=== PATIENT | male | born 1950 | race Caucasian/White ===

== ENCOUNTER 2018-09-16 09:43 | Day surgery (SDC) | payer OTHER ==
[~2018-09-16 09:43] MED LIST: Acetaminophen TAB* 325 MG PO PRN; Buffered Lidocaine 1% SYRIN* 1 ML/SYRINGE INTRADERM ONE
[2018-09-16] MEDS ORDERED: Midazolam* 1 MG/ML 2 ML VIAL (2 MG) ONE (11:35)
[2018-09-16 13:17] VITALS: BP 131/66
[2018-09-16] MEDS ORDERED: Neomycin/Polymy/Dex OPTH.SUSP* MAXITROL 0.1% 5 ML ONE (14:14)
[2018-09-16] MEDS ORDERED: Proparacaine 0.5% OPHTH.SOL* 15 ML BTL ONE (14:14)
[2018-09-16] MEDS ORDERED: Cyclopentolate 1% OPTH.SOL* 2 ML BTL ONE (14:14)
[2018-09-16] MEDS ORDERED: acetaZOLAMIDE TAB* 250 MG ONE (14:14)
[2018-09-16] MEDS ORDERED: Povidone Iodine 5% OPTH* 30 ML BTL ONE (14:14)
[2018-09-16] MEDS ORDERED: Ketorolac 0.5% OPHTH (NF) 0.5 % 5 ML BTL ONE (14:14)
[2018-09-16] MEDS ORDERED: Lidocaine 1%* 5 ML VIAL ONE (14:14)
[2018-09-16] MEDS ORDERED: Phenylephrine OPHTH SOL 2.5%* 2 ML ONE (14:14)
[2018-09-16] MEDS ORDERED: Lidocaine 2% EPI 1:200000 MPF*10-20 ML VIAL ONE (14:14)
--- NOTE | 2018-09-16 15:16 | OP ---
OPERATIVE NOTE: DATE OF OPERATION: 09/16/18 - [facility] DATE OF : 48 SURGEON: Karl Mortensen M.D. PREOPERATIVE DIAGNOSES: 1. Cataract, right eye. 2. Glaucoma, right eye. POSTOPERATIVE DIAGNOSES: 1. Cataract, right eye. 2. Glaucoma, right eye. OPERATIVE PROCEDURE: Extracapsular cataract extraction with IOL and iStent, right eye. PROCEDURE: The patient was brought to the operating room after being given 1/2 % Alcaine with epinephrine drops in the preoperative area. The eye was prepped and draped in the usual sterile fashion. Sterile drape and eyelid speculum were placed. Again, topical 1/2% Alcaine with epinephrine was given. A paracentesis incision was made at the 9 o'clock position with the No. 75 blade. Clear cornea incision 2.2 x 2.2-mm was created at the 12 o'clock position starting at the anterior limbus using the 2.2-mm keratome. The anterior chamber was irrigated with 0.4 mL of 1% non-preservative intracameral lidocaine and filled with DisCoVisc. A capsulorrhexis was completed using the cystotome and the Utrata forceps. Hydrodissection was performed with balanced salt solution. The lens nucleus was removed with the Phacoemulsification handpiece without incident. Cortex was removed with the irrigation-aspiration handpiece. The capsular bag was re-inflated using DisCoVisc and an SN60WF 12.5 implant was inserted with the shooter followed by an iStent inject inserted with its shooter in the nasal trabecular meshwork. The irrigation-aspiration handpiece was used to remove all residual DisCoVisc. The eye was refilled with balanced salt solution and the wound checked and found to be watertight. Topical Maxitrol drops were given. [id number]/[facility] #: [id number] [facility] HOSPITALJenny
== END 2018-09-16 13:05 | disposition home or self-care (01) ==
LOC: OREAST 09:43
PROVIDERS: ATTEND Specialist
DX: H25.811 Combined forms of age-related cataract, right eye (principal); H40.1131 Primary open-angle glaucoma, bilateral, mild stage; G20 Parkinson's disease; H33.8 Other retinal detachments; H53.2 Diplopia; I49.1 Atrial premature depolarization
CPT/HCPCS: A9270-GY; C1783; J2250; V2632

== ENCOUNTER 2018-10-23 21:22 | Observation (INO) | payer MEDICARE ==
--- NOTE | 2018-10-23 22:37 | ED ---
Neurological HPI - HPI Summary HPI Summary: This patient is a 68 year old male brought in by ambulance to [facility] with a chief complaint of vertigo and convulsions since 2 hours ago. Patient states that he was walking into the kitchen and making something to eat when he was hit with a sudden wave of movement, as if the room was spinning. The patient then experienced convulsions and fell to the floor. Patient has experienced similar falls around this month. Patient notes that did not lose consciousness and tried to brace himself on the counter, but ended up falling on the floor anyway. The pain is rated 0/10 in severity. Symptoms aggravated by nothing. Symptoms alleviated by nothing. Patient additionally notes mild discomfort in his left hip after falling. - History of Current Complaint Chief Complaint: EDDizziness Stated Complaint: SYNCOPE/FALL PER EMS Time Seen by Provider: 10/23/18 22:23 Hx Obtained From: Patient Onset/Duration: Started hours ago, Still Present Timing: Constant Current Severity: None Pain Intensity: 0 Pain Scale Used: 0-10 Numeric Character: Room Spinning, Dizzy, Other: - convulsions, vertigo - Additional Pertinent History Primary Care Physician: [id number] - Allergy/Home Medications Allergies/Adverse Reactions: Allergies Allergy/AdvReac Type Severity Reaction Status Date / Time primidone Allergy Rash Verified 10/23/18 21:30 PMH/Surg Hx/FS Hx/Imm Hx Previously Healthy: No Endocrine/Hematology History: Denies: Hx Diabetes, Hx Thyroid Disease Cardiovascular History: Denies: Hx Hypertension, Hx Pacemaker/ICD, Other Cardiovascular Problems/ Disorders Respiratory History: Reports: Hx Pneumonia, Other Respiratory Problems/ Disorders - +PPD; SERIAL CXR- NEGATIVE; TREATED WITH MEDS IN 1973 Denies: Hx Asthma, Hx Chronic Obstructive Pulmonary Disease (COPD), Hx Seasonal Allergies, Hx Sleep Apnea GI History: Denies: Hx Ulcer, Other GI Disorders History: Denies: Hx Renal Disease, Other Problems/Disorders Musculoskeletal History: Reports: Hx Arthritis, Hx Bursitis, Hx Tendonitis - LEFT SHOULDER- 3 SURGERIES Sensory History: Reports: Hx Cataracts - BILATERAL, Hx Contacts or Glasses - GLASSES, Hx Glaucoma Denies: Hx Hearing Aid Opthamlomology History: Reports: Hx Cataracts - BILATERAL, Hx Contacts or Glasses - GLASSES, Hx Glaucoma Neurological History: Reports: Other Neuro Impairments/Disorders - PARKINSON'S DISEASE, PAIN CLINIC PATIENT Denies: Hx Dementia Psychiatric History: Reports: Hx Anxiety, Hx Depression Denies: Hx Panic Disorder - Surgical History Surgery Procedure, Year, and Place: 1966 RT WRIST ORIF [place]; 2011, 2012 LEFT ACROMIUM REPAIR- 3 SURGERIES ON LEFT SHOULDER; [facility] 1996 R THORACOSTOMY FOR EMPYEMA [place] 2002 L KNEE PARTIAL MENISECTOMY [facility] 1994 RT KNEE ACL RECONST [facility] 2007 PENG TOTAL HIPS BRUNO. HERNIA -05/2014;. RIGHT EYE CRYO SURGERY -09/16/18 DR APONTE [facility] INFO SCANNED IN OP REPORTS-CONDITIONAL 6 UP TO 3T IMMEDIATLEY AFTER IMPLANTATION Hx Anesthesia Reactions: No Infectious Disease History: No Infectious Disease History: Denies: Hx Hepatitis, Hx Human Immunodeficiency Virus (HIV), History Other Infectious Disease, Traveled Outside the [place] in Last 30 Days - Family History Family History: no cardio vascular or bleeding disorders in lineage - Social History Lives: With Family Alcohol Use: None Substance Use Type: Reports: None Substance Use Comment - Amount & Last Used: Percocet Smoking Status (MU): Never Smoked Tobacco Have You Smoked in the Last Year: No Review of Systems Negative: Fever Positive: Other - mild discomfort in left hip Neurological: Other - vertigo, convulsions All Other Systems Reviewed And Are Negative: Yes Physical Exam - Summary Physical Exam Summary: Appearance: Well-appearing, Well-nourished, lying in bed comfortably Skin: Warm, dry, no obvious rash, Small abrasion to the left temporal area, Small contusion and right parietal skull, Large hematoma overlying greater trochanter on left. Eyes: sclera anicteric, no conjunctival pallor ENT: mucous membranes moist, pharynx appears normal Neck: Supple, nontender Respiratory: Clear to auscultation, no signs of respiratory distress Cardiovascular: Normal S1, S2. No murmurs. Normal distal pulses in tibial and radial bilaterally. Abdomen: Soft, nontender, normal active bowel sounds present Musculoskeletal: Normal, Strength/ROM Intact Neurological: A&Ox3, awake and alert, mentation is normal, speech is fluent and appropriate Psychiatric: affect is normal, does not appear anxious or depressed Triage Information Reviewed: Yes Vital Signs On Initial Exam: Initial Vitals Temp Pulse Resp BP Pulse Ox 98.0 F 82 16 150/81 100 10/23/18 21:28 10/23/18 21:28 10/23/18 21:28 10/23/18 21:28 10/23/18 21:28 Vital Signs Reviewed: Yes Diagnostics - Vital Signs Vital Signs Temp Pulse Resp BP Pulse Ox 10/23/18 21:28 98.0 F 82 16 150/81 100 - Laboratory Result Diagrams: 10/23/18 23:47 10/23/18 23:47 Lab Statement: Any lab studies that have been ordered have been reviewed, and results considered in the medical decision making process. - Radiology Hip/Pelvis XR Radiology Interpretation Completed By: ED Physician Summary of Radiographic Findings: Hip/Pelvis XR reveals, per ED physician, hardware in good position. No new fractures. Pending official report. - CT CT Brain CT Interpretation Completed By: Radiologist Summary of CT Findings: CT Brain reveals, per radiologist, IMPRESSION: 1. No traumatic intracranial abnormalities. 2. Age-related atrophy and mild chronic small vessel ischemic disease. ED physician has reviewed this radiology report. - EKG 2225 Cardiac Rate: NL EKG Rhythm: Sinus Rhythm - 80 BPM Summary of EKG Findings: An EKG, taken 2224, reveals NSR (80 BPM), P waves, QRS complex, and T waves are within normal limits, T waves and intervals are normal , no ischemic changes. This is a normal EKG. Re-Evaluation - Re-Evaluation First Eval Re-Evaluation Time: 23:36 Comment: Patient wishes to be admitted for observation rather than discharged. Hospitalist will be paged. Course/Dx - Course Course Of Treatment: This patient is a 68 year old male brought in by ambulance to [facility] with a chief complaint of vertigo and convulsions since 2 hours ago. Patient states that he was walking into the kitchen and making something to eat when he was hit with a sudden wave of movement, as if the room was spinning. The patient then experienced convulsions and fell to the floor. Patient has experienced similar falls around this month. An EKG, taken 2225, reveals NSR ( 80 BPM), P waves, QRS complex, and T waves are within normal limits, T waves and intervals are normal, no ischemic changes. This is a normal EKG. Hip/Pelvis XR reveals, per ED physician, hardware in good position. No new fractures. Pending official report. CT Brain reveals, per radiologist, IMPRESSION: 1. No traumatic intracranial abnormalities. 2. Age-related atrophy and mild chronic small vessel ischemic disease. ED physician has reviewed this radiology report. Patient will be discharged with a dx of vertigo. Patient is advised to follow up with PCP in 3 days. Patient instead requests to be admitted for observation. Hospitalist will be paged. We discussed patient care with Dr. Coats (Hospitalist) at 0040 and they agreed to accept the patient. Patient will instead be admitted with a dx of vertigo. The patient is agreeable with this plan. - Diagnoses Provider Diagnoses: Vertigo, Near syncope - Physician Notifications Discussed Care Of Patient With: Karel Coats - Hospitalist Time Discussed With Above Provider: 00:40 - We discussed patient care with Dr. Coats (Hospitalist) at 0040 and they agreed to accept the patient Instructed by Provider To: Admit As Observation Discharge - Sign-Out/Discharge Documenting (check all that apply): Patient Departure Patient Received Moderate/Deep Sedation with Procedure: No - Discharge Plan Condition: Stable Disposition: ADMITTED TO [facility] - Billing Disposition and Condition Condition: STABLE Disposition: Admitted to [facility] - Attestation Statements Document Initiated by Dulce Maria: Yes Documenting Scribe: Costa Holley Provider For Whom Dulce Maria is Documenting (Include Credential): Tito Buchanan MD Scribandre Attestation: Costa Madera, scribed for Tito Buchanan MD on 10/24/18 at 0610. Scribe Documentation Reviewed: Yes Provider Attestation: The documentation as recorded by the Costa hansen accurately reflects the service I personally performed and the decisions made by me, Tito Buchanan MD Status of Scribe Document: Viewed
[2018-10-23 23:55] LABS: ABS Eosinophils 0.1 10^3/ul (0-0.6); ABS Lymphocytes 1.6 10^3/ul (1.0-4.8); ABS Monocytes 0.6 10^3/ul (0-0.8); ABS Neutrophils 5.3 10^3/ul (1.5-7.7); Eosinophil % 1.5 %; Hematocrit 35 % (42-52); Hemoglobin 11.8 g/dL (14.0-18.0); Lymphocyte % 20.6 %; Mean Corpuscular HGB Conc 33 g/dL (31-36); Mean Corpuscular Hemoglobin 34 pg (27-31); Mean Corpuscular Volume 101 fL (80-94); Mean Platelet Volume 7.3 fL (7.4-10.4); Platelet Count 230 10^3/uL (150-450); Red Blood Count 3.52 10^6 /uL (4.18-5.48); Red Cell Distribution Width 14 % (10.5-15); White Blood Count 7.6 10^3/uL (3.5-10.8)
[2018-10-24 00:09] LABS: Calcium 9.1 mg/dL (8.6-10.3); EGFR African American 92.9 (>60); EGFR Non-African American 76.7 (>60); Potassium 4.3 mmol/L (3.5-5.0)
--- NOTE | 2018-10-24 02:49 | ADMNOTE ---
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 He had convulsion or involuntary movement of all extremities, then fell to the floor without losing consciousness. He struck his forehead, left side, on a cabinet and landed on his left hip. He was able to get up with assistance, and had mild pain and notable swelling in the left hip. Patient has had 4-5 episodes of this falling or near-falling w/ loss of control of body in the last few weeks. The first was the day after cataract surgery on 09/24. He saw Dr. Yoder and was told this is convulsive syncope. He was given florinef to take, but this caused hypertension and severe pedal edema, so he stopped it. 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 in last 40 years, no current alcohol use, no current drug use, distant history of drug dependence Past Medical History: Findings - Parkinsons with Lewy body dementia, osteoarthritis, glaucoma, depression; PSH: RT inguinal hernia, rhinoplasty, RT navicular frx repair, bilateral total hip replacement, LT shoulder surgery X3, RT ACL Review of Systems - Measurements Intake and Output: Intake and Output Last 24 Hours 10/21/18 10/22/18 10/23/18 10/24/18 06:59 06:59 06:59 06:59 Weight 68.039 kg - Review of Systems Constitutional Symptoms: Positive: Weight Gain, Unexplained Falls Negative: Weight Loss Dermatology: Positive: Normal HEENT: Positive: Normal Eyes: Positive: Normal Thyroid: Positive: Normal Negative: Palpitations Pulmonary: Positive: Normal Cardiology: Positive: Normal Negative: Syncope Gastroenterology: Positive: Normal Genital - Urinary: Positive: Normal Endocrinology: Positive: Normal Neurology: Positive: Change in Coordination, Change in Walking, Unexplained Weakness Psychiatry: Positive: Normal Objective Active Medications: Home Meds: Bupropion HCl (Wellbutrin Sr Tab*) 200 mg PO QAM [facility] Carbidopa/Levodopa (Sinemet 25/100 Tab(*)) 1 tab PO QID NAYELI Donepezil HCl (Aricept Tab*) 10 mg PO BEDTIME N[facility] Melatonin (Melatonin) 3 mg PO BEDTIME N[facility]I Sertraline HCl (Zoloft*) 100 mg PO QAM N[facility]I Cyclobenzaprine 10 mg po TID prn Naproxen 220 mg po BID prn Vital Signs - 8 hr 10/23/18 10/23/18 10/23/18 21:28 21:54 21:56 Temperature 36.7 C Pulse Rate 82 82 82 Respiratory 16 Rate Blood Pressure 150/81 181/92 (mmHg) O2 Sat by Pulse 100 100 100 Oximetry 10/24/18 10/24/18 10/24/18 00:54 01:00 01:24 Temperature Pulse Rate 71 69 72 Respiratory Rate Blood Pressure 160/89 143/80 (mmHg) O2 Sat by Pulse 100 100 99 Oximetry 10/24/18 10/24/18 01:54 02:07 Temperature Pulse Rate 74 Respiratory Rate Blood Pressure 140/78 (mmHg) O2 Sat by Pulse 99 Oximetry Oxygen Devices in Use Now: None Appearance: alert, no distress Eyes: No Scleral Icterus Ears/Nose/Mouth/Throat: NL Teeth, Lips, Gums Neck: NL Appearance and Movements; NL JVP, Trachea Midline Respiratory: Symmetrical Chest Expansion and Respiratory Effort, Clear to Auscultation Cardiovascular: NL Sounds; No Murmurs; No JVD, RRR Abdominal: NL Sounds; No Tenderness; No Distention, No Hepatosplenomegaly Lymphatic: No Cervical Adenopathy Extremities: No Edema, - - very large LEFT hip hematoma Skin: No Rash or Ulcers Neurological: Alert and Oriented x 3, - - mask facies, no tremor, somewhat tangential speech Lines/Tubes/Other Access: Clean, Dry and Intact Peripheral IV Nutrition: Taking PO's Result Diagrams: 10/23/18 23:47 10/23/18 23:47 Diagnostic Imaging: Head CT: negative for subdural, infarct LT hip X-ray: hardware in place, no fracture EKG Data: normal sinus rhythm, normal axis, no ischemic ST/T-wave changes Assess/Plan/Problems-Billing Assessment: 68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 Sinemet also can worsen orthostasis. -Will observe on telemetry, check orthostatic vitals in AM. -Will ask Dr. Buchanan of neurology to evaluate patient. -Differential also includes tachy or ney arrhythmias -Will give trial of midodrine, as florinef was not helpful. (2) Seizure Current Visit: Yes Status: Acute Priority: Medium Code(s): R56.9 - UNSPECIFIED CONVULSIONS SNOMED Code(s): 98243725 Comment: -Seizure also in differential, but low probability without loss of consciousness -Wellbutrin can lower seizure threshold -Will discuss with neurologist. (3) DVT prophylaxis Current Visit: Yes Status: Acute Priority: Low Code(s): Z29.9 - ENCOUNTER FOR PROPHYLACTIC MEASURES, UNSPECIFIED SNOMED Code(s): 571461879 Comment: -Moderate risk, will start SC heparin Status and Disposition: observation
[2018-10-24] MEDS: Melatonin 3 MG TAB PO SCH ×2 (03:26→21:28)
[2018-10-24 05:01] LABS: Urine Appearance Clear; Urine Bilirubin Negative (Negative); Urine Blood Negative (Negative); Urine Color Yellow; Urine Glucose Negative (Negative); Urine Ketones Negative (Negative); Urine Nitrite Negative (Negative); Urine Protein Negative (Negative); Urine Specific Gravity 1.016 (1.010-1.030); Urine Urobilinogen Negative (Negative)
[2018-10-24] MEDS ORDERED: CMCS:Midodrine (NF) 5 MG TAB PO SCH (06:00)
--- NOTE | 2018-10-24 08:43 | PN ---
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 Patient has had 4-5 episodes of this falling or near-falling w/ loss of control of body in the last few weeks. Trialed florinef originally Overnight: VSS, SBP in the 140s, orthostatic VS pending Labs: Mild anemia This morning comfortable in bed, recalls entire event, pleasant though depressed about situation, understandably. Willing to trial midodrine and touch base with Dr. Buchanan, whom is consulted regarding sinement dosing. He has no c/ o no dizziness, no chest pain no SOB, tolerating PO, would like to go home if possible. 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 in last 40 years, no current alcohol use, no current drug use, distant history of drug dependence Past Medical History: Findings - Parkinsons with Lewy body dementia, osteoarthritis, glaucoma, depression; PSH: RT inguinal hernia, rhinoplasty, RT navicular frx repair, bilateral total hip replacement, LT shoulder surgery X3, RT ACL Objective Active Medications: Bupropion HCl (Wellbutrin Sr Tab*) 200 mg PO QAM [facility] Carbidopa/Levodopa (Sinemet 25/100 Tab(*)) 1 tab PO QID NAYELI Donepezil HCl (Aricept Tab*) 10 mg PO BEDTIME [facility] Heparin Sodium (Porcine) (Heparin Vial(*)) 5,000 units SUBCUT Q12HR [facility] Melatonin (Melatonin) 3 mg PO BEDTIME [facility] Last Admin: 10/24/18 03:26 Dose: 3 mg Midodrine (Midodrine (Nf)) 5 mg PO 0600 [facility]; Protocol Last Admin: 10/24/18 05:53 Dose: 5 mg Sertraline HCl (Zoloft*) 100 mg PO QAM [facility] Vital Signs - 8 hr 10/24/18 10/24/18 10/24/18 00:54 01:00 01:24 Temperature Pulse Rate 71 69 72 Respiratory Rate Blood Pressure 160/89 143/80 (mmHg) O2 Sat by Pulse 100 100 99 Oximetry 10/24/18 10/24/18 10/24/18 01:54 02:07 02:52 Temperature 99.0 F Pulse Rate 74 76 Respiratory 16 Rate Blood Pressure 140/78 146/72 (mmHg) O2 Sat by Pulse 99 100 Oximetry 10/24/18 03:08 Temperature 97.8 F Pulse Rate 70 Respiratory 16 Rate Blood Pressure 140/70 (mmHg) O2 Sat by Pulse 100 Oximetry Oxygen Devices in Use Now: None Appearance: Well man in NAD, slow speech but appropriate Eyes: No Scleral Icterus, PERRLA, - - EOMI w/o nystagmus Ears/Nose/Mouth/Throat: NL Teeth, Lips, Gums Neck: NL Appearance and Movements; NL JVP Respiratory: Symmetrical Chest Expansion and Respiratory Effort, Clear to Auscultation Cardiovascular: NL Sounds; No Murmurs; No JVD, RRR Abdominal: NL Sounds; No Tenderness; No Distention, No Hepatosplenomegaly Lymphatic: No Cervical Adenopathy Extremities: No Edema Skin: No Rash or Ulcers Neurological: Alert and Oriented x 3, - - Slow speech, mild tremor on R UE Result Diagrams: 10/23/18 23:47 10/23/18 23:47 Diagnostic Imaging: Head CT: negative for subdural, infarct LT hip X-ray: hardware in place, no fracture EKG Data: normal sinus rhythm, normal axis, no ischemic ST/T-wave changes Assess/Plan/Problems-Billing Assessment: 68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 CTH neg, recent MRI unchanged. - Patient Problems (1) Syncopal episodes Current Visit: Yes Status: Acute Priority: High Code(s): R55 - SYNCOPE AND COLLAPSE SNOMED Code(s): 707203916 Comment: -Suspect autonomic dysfunction due to parkinsons. Sinemet also can worsen orthostasis. -Will observe on telemetry, check orthostatic vitals in AM. -Will ask Dr. Buchanan of neurology to evaluate patient. -Differential also includes tachy or ney arrhythmias -Will give trial of midodrine, as florinef was not helpful. (2) Parkinson disease Current Visit: No Status: Acute Code(s): G20 - PARKINSON'S DISEASE SNOMED Code(s): 17666761 Comment: -Continue current doses of Sinemet unless instructed otherwise -Carbidpa/Levopa/Donepezil (3) Lewy body dementia Current Visit: No Status: Acute Comment: -Mild (4) DVT prophylaxis Current Visit: Yes Status: Acute Priority: Low Code(s): Z29.9 - ENCOUNTER FOR PROPHYLACTIC MEASURES, UNSPECIFIED SNOMED Code(s): 669454860 Comment: -Moderate risk, will start SC heparin (5) Full code status Current Visit: Yes Status: Acute Code(s): Z78.9 - OTHER SPECIFIED HEALTH STATUS SNOMED Code(s): 639716290 Status and Disposition: observation, will possibly d/c s/p PT and consultation with Dr. Buchanan
[2018-10-24] MEDS: Sertraline* 50 MG TAB PO SCH (08:56)
[2018-10-24] MEDS: buPROPion SR TAB.SR* 200 MG PO SCH (08:56)
[2018-10-24] MEDS: Carbidopa/Levodop 25/100 MG TAB(*) PO SCH ×4 (08:56→21:25)
[2018-10-24] MEDS: Heparin VIAL(*) 5000 UNITS/ML VIAL (FIVE THOUSAND) SUBCUT SCH ×2 (08:56→21:28)
[2018-10-24] MEDS ORDERED: Cyclobenzaprine TAB* 10 MG PO PRN (19:15)
[2018-10-24] MEDS ORDERED: Naproxen TAB* 250 MG PO PRN (19:15)
[2018-10-24] MEDS ORDERED: Donepezil TAB* 5 MG PO SCH (21:00)
--- NOTE | 2018-10-24 23:51 | CONS ---
CONSULTATION REPORT: DATE OF CONSULT: 10/24/18 PATIENT OF: Dr. Rebeca Carrillo; Dr. Yoder, Neurology, and Dr. Tirso Quintana. HISTORY OF PRESENT ILLNESS: This is a 68-year-old man who is followed by Dr. Yoder longstanding for Parkinson's with dementia, labeled as Parkinson's with Lewy body dementia. Of note, since cataract surgery at the beginning of September, he has had 5 episodes that he describes as vertiginous where he will be vertiginous while he is standing. For instance the one that occurred yesterday that brought him to the ER was about 6 to 7 steps into him walking and he had stood, at first he was not lightheaded when this occurred, there was no visual symptoms, he did not feel like he was going to pass out, but he had an overwhelming feeling of his body spinning and him being thrust against furniture striking his head. He has had episodes in the shower, none of the episodes occurred with visual symptoms, headache, or a feeling of going to pass out, but all of them have occurred with vertigo. He has been fine immediately afterwards. He has never lost consciousness with any of these episodes. He does have significant orthostasis with apparently, according to the nurse practitioner, a 40 point drop after standing, but he says he does get symptomatic when he stands up too quickly, but this is a feeling of generalized weakness and possibly lightheaded. He does not get vertigo when standing. He has no nausea, but this is not clear, but he does not sound like this is precipitated by sudden movements of his head. He was seeing Dr. Yoder for this and got Florinef, but this caused hypertension and severe pedal edema, so he stopped it. He is a retired ER physician, with 2 children without tobacco abuse for the past 40 years. No alcohol use. No current drug use. Distant history of drug dependence. PAST MEDICAL HISTORY: He has depression, osteoarthritis, and glaucoma. PAST SURGICAL HISTORY: He is status post navicular fracture repair, bilateral hip replacement, left shoulder surgery x3, right inguinal herniorrhaphy. FAMILY HISTORY: Mother of coronary artery disease. Father had diabetes. REVIEW OF SYSTEMS: Negative in all 14 spheres. PHYSICAL EXAM: Temperature 97.8, pulse 67, respirations 18, current blood pressure 122/65. He is alert and oriented with normal speech other than somewhat slowed. He has a flattened affect, bradykinesia. He had a minor resting tremor in his right foot. He notes that if he misses a dose of Sinemet , his right-sided tremor becomes worse. He has been using a four-pronged cane recently. Although his gait has not changed in between episodes, but he feels when an episode occurs, the cane helps him stabilize and makes it less likely that he will fall uncontrolled to the floor. He had some atrophy in intrinsic muscles of the hands and he says he has some neck pain. Strength was trace weak diffusely. Reflexes were 1. Toes were equivocal to downgoing. Sensation intact to light touch. Chest clear. Cardiovascular: Regular rate and rhythm. Abdomen is soft. Positive bowel sounds. He had sharp discs bilaterally. DIAGNOSTIC STUDIES/LAB DATA: Reviewed his MRI scan which showed some white matter disease but none in the cerebellum. This was done on 10/01/18 for these attacks and he had no diffusion weighted imaging abnormalities. Labs include MCV of 101, hematocrit of 35, otherwise CBC was unremarkable and normal BMP. UA was negative. I discussed with Luis and Dr. Rebeca Carrillo that the his acute episodes are 2 to 3 minutes worth of severe vertigo and then he is fine after. This could be related to his orthostatic hypotension, but he does not have typical near syncopal symptoms that predate this vertigo. If it is vertigo from the near syncope, it would be 2- step mechanism, drop in blood pressure causing posterior circulation insufficiency. There is nothing on MRI scan that indicates that is occurring, but since his episodes are so brief, it may not show up on MRI scan. In any event, his severe orthostasis needs to be treated. Part of the treatment should include decreasing the Sinemet to see how much his tremor worsens. It is possible that the Sinemet is partly contributing to the orthostasis, although his dose of Sinemet is not high. It is more likely that the orthostasis is due to the Parkinson's. I would also check an EEG as an outpatient in the near future with followup with Dr. Yoder to screen for seizures since the episodes are short. I think it is less likely that this would be secondary to otoliths since the symptoms are so brief and limited. He has had a unremarkable CT scan for this most recent event, and I do not feel any further testing needs to be done in this hospitalization. Thank you for sharing his case. [id number]/[facility] #: [id number] CYNTHIA
[2018-10-25 03:49] VITALS: BP 140/72
--- NOTE | 2018-10-25 08:31 | PN ---
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 Patient has had 4-5 episodes of this falling or near-falling w/ loss of control of body in the last few weeks. Trialed florinef originally Overnight: VSS, SBP in the 140s, orhtostatics positive, seen by neuro last night recommended continuing monitoring, also EEG to be pursued as outpt Labs: Held today This morning comfortable in bed, no sx with midodrine, and plan to continue, discussed modifying home with chairlift and also changing sinemet dose 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 in last 40 years, no current alcohol use, no current drug use, distant history of drug dependence Past Medical History: Findings - Parkinsons with Lewy body dementia, osteoarthritis, glaucoma, depression; PSH: RT inguinal hernia, rhinoplasty, RT navicular frx repair, bilateral total hip replacement, LT shoulder surgery X3, RT ACL Objective Active Medications: Bupropion HCl (Wellbutrin Sr Tab*) 200 mg PO QAM [facility] Last Admin: 10/24/18 08:56 Dose: 200 mg Carbidopa/Levodopa (Sinemet 25/100 Tab(*)) 1 tab PO TID NAYELI Last Admin: 10/24/18 21:25 Dose: 1 tab Cyclobenzaprine HCl (Flexeril Tab*) 10 mg PO TID PRN PRN Reason: PAIN Last Admin: 10/24/18 21:27 Dose: 10 mg Donepezil HCl (Aricept Tab*) 10 mg PO BEDTIME NAYELI Last Admin: 10/24/18 21:28 Dose: 10 mg Heparin Sodium (Porcine) (Heparin Vial(*)) 5,000 units SUBCUT Q12HR NAYELI Last Admin: 10/24/18 21:28 Dose: 5,000 units Melatonin (Melatonin) 3 mg PO BEDTIME NAYELI Last Admin: 10/24/18 21:28 Dose: 3 mg Midodrine (Midodrine (Nf)) 5 mg PO TID NAYELI; Protocol Last Admin: 10/24/18 21:26 Dose: 5 mg Naproxen (Naprosyn Tab*) 250 mg PO Q12H PRN PRN Reason: HEADACHE/PAIN Last Admin: 10/24/18 21:26 Dose: 250 mg Sertraline HCl (Zoloft*) 100 mg PO QAM NAYELI Last Admin: 10/24/18 08:56 Dose: 100 mg Vital Signs - 8 hr 10/25/18 10/25/18 00:50 03:21 Temperature 97.1 F Pulse Rate 69 Respiratory 16 16 Rate Blood Pressure 140/72 (mmHg) O2 Sat by Pulse 98 Oximetry Oxygen Devices in Use Now: None Appearance: Pleasant man in NAD Eyes: No Scleral Icterus Ears/Nose/Mouth/Throat: NL Teeth, Lips, Gums Neck: NL Appearance and Movements; NL JVP, Trachea Midline Respiratory: Symmetrical Chest Expansion and Respiratory Effort, Clear to Auscultation Cardiovascular: NL Sounds; No Murmurs; No JVD, RRR Abdominal: NL Sounds; No Tenderness; No Distention, No Hepatosplenomegaly Lymphatic: No Cervical Adenopathy Extremities: No Edema Skin: No Rash or Ulcers Neurological: Alert and Oriented x 3, - - Forgetful Result Diagrams: 10/23/18 23:47 10/23/18 23:47 Diagnostic Imaging: Head CT: negative for subdural, infarct LT hip X-ray: hardware in place, no fracture EKG Data: normal sinus rhythm, normal axis, no ischemic ST/T-wave changes Assess/Plan/Problems-Billing Assessment: 68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 CTH neg, recent MRI unchanged. - Patient Problems (1) Syncopal episodes Current Visit: Yes Status: Acute Priority: High Code(s): R55 - SYNCOPE AND COLLAPSE SNOMED Code(s): 194105511 Comment: -Suspect autonomic dysfunction due to parkinsons. Sinemet also can worsen orthostasis. -Will observe on telemetry -Appreciate Dr. María waters -Differential also includes tachy or ney arrhythmias -Will give trial of midodrine, as florinef was not helpful. (2) Parkinson disease Current Visit: No Status: Acute Code(s): G20 - PARKINSON'S DISEASE SNOMED Code(s): 46038857 Comment: -Lowered Sinemet to TID -Carbidpa/Levopa/Donepezil (3) Lewy body dementia Current Visit: No Status: Acute Comment: -Mild (4) DVT prophylaxis Current Visit: Yes Status: Acute Priority: Low Code(s): Z29.9 - ENCOUNTER FOR PROPHYLACTIC MEASURES, UNSPECIFIED SNOMED Code(s): 444882021 Comment: -Moderate risk, will start SC heparin (5) Full code status Current Visit: Yes Status: Acute Code(s): Z78.9 - OTHER SPECIFIED HEALTH STATUS SNOMED Code(s): 429036689 Status and Disposition: D/C with home care nursing
[2018-10-25] MEDS: Carbidopa/Levodop 25/100 MG TAB(*) PO SCH (08:40)
[2018-10-25] MEDS: buPROPion SR TAB.SR* 200 MG PO SCH (08:40)
[2018-10-25] MEDS: Sertraline* 50 MG TAB PO SCH (08:40)
[2018-10-25] MEDS: Heparin VIAL(*) 5000 UNITS/ML VIAL (FIVE THOUSAND) SUBCUT SCH (08:40)
--- NOTE | 2018-10-25 14:53 | DS ---
CC: Dr. Yoder * DISCHARGE SUMMARY: DATE OF ADMISSION: 10/24/18 DATE OF DISCHARGE: 10/25/18 PRIMARY CARE PROVIDER: Dr. Quintana. NEUROLOGIST: Dr. Yoder. PRIMARY DIAGNOSIS: Vertigo and presyncopal symptoms. SECONDARY DIAGNOSES: 1. Parkinson's disease. 2. Lewy body dementia. 3. Anxiety. 4. Recurrent orthostatic hypotension. 5. Osteoarthritis. 6. Glaucoma. MEDICATIONS ON DISCHARGE: 1. Midodrine 5 mg p.o. t.i.d. 2. Bupropion 200 mg p.o. q.a.m. 3. Sinemet 25/100 t.i.d. 4. Cyclobenzaprine 10 mg p.o. t.i.d. 5. Naproxen 250 mg p.o. b.i.d. 6. Donepezil 10 mg p.o. q.h.s. 7. Melatonin and B6 combo 3 mg p.o. q.h.s. 8. Sertraline 100 mg p.o. q.a.m. Medications changes in this hospitalization include the addition of midodrine 5 mg p.o. t.i.d. and the changing of the dose of Sinemet from 25/100 one tablet p.o. 4 times a day to p.o. t.i.d. 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 He presented to the emergency room after such event. He reported he had been sitting, watching a movie for several hours. He stood up and walked to the kitchen, which was about a 15- to 20-second excursion, and when arriving to the kitchen, he felt persistently dizzy and felt "that he lost all control of his muscles". He held on to the sink and did not lose consciousness, but ultimately fell to the ground and did scrape his left temporal area across the oven as he did fall. The entire event lasted about 60 to 120 seconds. He did have a sensation that the room was spinning and he also did have a mild prodrome prior noting that he felt dizzy, although he does not endorse any vision symptoms, any sweating, tachycardia, palpitations, or chest pain during these events. He is unsure what provokes them, although he does say that changing position from standing to sitting seems to be one of the things that has brought them on in the past. The patient has been worked up for this in the past and had an unremarkable MRI and was being seen by Dr. Yoder and had been put on a trial of Florinef for presumed presyncopal events triggering these episodes, although the patient could not tolerate Florinef secondary to fluid retention. He was admitted for observation after a negative CT head for trauma and placed on telemetry for observation status and his hospital course by problems as follows: 1. Presyncopal and vertiginous symptoms. The patient had no further episodes. He was started on midodrine 5 mg by mouth 3 times a day to see if it would improve his standing blood pressure so that his orthostatics profile would improve. He tolerated midodrine 5 mg p.o. t.i.d. and his baseline blood pressure did increase to systolics mid 140s. His ortho-statics remained positive on hospital day 1 dropping from systolics 140s to systolics 110s and heart rate remaining the same at 70s and 80s upon standing. His orthostatic blood pressures measured here in the hospital did not trigger any of the episodes. Furthermore, he did work with Physical Therapy who recommended possibilities of wheelchair when transferring and ambulating about the house, although the patient reports that his doorframe will not accommodate a wheelchair and we offered home PT for assessment, although they declined at this time. He does have stairs to go up, 7 or 8 to the entrance and does not have a chair glider at this time, although this suggestion was made. 2. Parkinson's disease. The patient takes Sinemet with excellent control of his tremor per him and is on 4 times a day dosing. This is known to have a side effect of orthostatic hypotension and the patient is willing to try lowering the dose of Sinemet slightly to t.i.d. as he is largely bradykinetic on our evaluations here. He was seen by Dr. Buchanan, who weighed in on both his Parkinson's disease as well as his intermittent vertiginous episodes, who recommended an EEG to ensure there is no seizure-like component and also postulated that triggers have more of a vertigo component than true presyncope given the patient describes the room spinning and consciousness throughout. Because they are so brief, he is unsure of Matthew maneuvers would be able to correct it if there is an otolith involved. Finally, he did recommend followup MRI, although this was done recently and did not show any sort of posterior circulation stroke, although this could also be possibly TIAs in the setting of orthostatic hypotension triggering the vertigo symptoms that come with posterior circulation. Overall, the patient was ambulating, stable, and back at his baseline on hospital day 2 and after monitoring on telemetry, no gross arrhythmias, tachybrady or other issues were noted, and patient and his family are amenable to discharge to home with home nursing services as well as trial of midodrine t.i.d. accompanied by lowering of the Sinemet dose. They are planned to follow up with Dr. Yoder in the office, if made a no-call, on Friday to set up EEG as an outpatient and continue following with Dr. Yoder. LABS AND STUDIES DONE DURING THIS HOSPITALIZATION: Labs on presentation: White blood cell count 7.6, hemoglobin 11.8, hematocrit 35, platelets 230. Sodium 140, potassium 4.3, chloride 106, carbon dioxide 30, anion gap 4, BUN 32 , creatinine 0.97, glucose 115, calcium 9.1. A UA was done, which is unremarkable. A CT head was done which showed no acute intracranial process, and a hip and pelvis x-ray was done which showed no acute fracture. EKG was done, which showed normal sinus rhythm with no active signs of ischemia. ITEMS TO FOLLOW UP ON POST DISCHARGE: Recurrent vertiginous and presyncopal "episodes." Trial of midodrine and lowering Sinemet seems a reasonable first pass at addressing these episodes, although we instructed that there is no guarantee that orthostasis is actually triggering them. I will continue to follow up with Dr. Yoder and counseled the patient that he may need modification of his home to ensure safety. Furthermore, he is not driving, which we agree with. DISPOSITION ON DISCHARGE: The patient is stable for discharge to home and family agrees. He is able to ambulate, feed and void freely. We recommend he not driving and family and patient are in agreeance with this. TIME SPENT: Forty minutes were spent on the planning of this discharge with over half of that spent directly at the bedside of the patient providing direct patient care. Plan of care was discussed with the patient, his family, and they agree with discharge to home with home nursing services and continued followup with Dr. Yoder and Outpatient Neurology. [id number]/[facility] #: [id number] CYNTHIA
== END 2018-10-25 13:30 | disposition home or self-care (01) ==
LOC: ED 21:22 → MEDTELE 10-24 02:02
PROVIDERS: ADMIT Internal Medicine; ATTEND Internal Medicine
DX: R55 Syncope and collapse (principal); R42 Dizziness and giddiness; G31.83 Neurocognitive disorder with Lewy bodies; F02.80 Dementia in other diseases classified elsewhere, unspecified severity, without behavioral disturbance, psychotic disturbance, mood disturbance, and anxiety; F41.9 Anxiety disorder, unspecified; I95.1 Orthostatic hypotension; M19.90 Unspecified osteoarthritis, unspecified site; H40.9 Unspecified glaucoma
CPT/HCPCS: 36415; 70450; 80048; 81003; 85025; 93005; 96372; 99283; A9270-GY; G0378; G8978-GP-CI; G8979-GP-CI; G8980-GP-CI; J1644

== ENCOUNTER 2018-12-30 07:33 | Day surgery (SDC) | payer MEDICARE, OTHER ==
[2018-12-30] MEDS ORDERED: Midazolam* 1 MG/ML 5 ML VIAL (5 MG) ONE (09:06)
[2018-12-30 10:39] VITALS: BP 131/58
--- NOTE | 2018-12-30 10:39 | OP ---
OPERATIVE NOTE: DATE OF OPERATION: 12/30/18 DATE OF : 48 SURGEON: Karl Mortensen M.D. PREOPERATIVE DIAGNOSIS: Cataract and glaucoma, left eye. POSTOPERATIVE DIAGNOSIS: Cataract and glaucoma, left eye. OPERATIVE PROCEDURE: Extracapsular cataract extraction with intraocular lens implant, left eye, with iStent. PROCEDURE: The patient was brought to the operating room after being given 1/2% Alcaine with epineph rine drops in the preoperative area. The eye was prepped and draped in the usual sterile fashion. S terile drape and eyelid speculum were placed. Again, topical 1/2% Alcaine with epinephrine was given . A paracentesis incision was made at the 3 o'clock position with the No. 75 blade. Clear cornea in cision 2.2 x 2.2 mm was created at the 6 o'clock position starting at the anterior limbus using the 2 .2 mm keratome. The anterior chamber was irrigated with 0.4 mL of 1% non-preservative intracameral l idocaine and filled with DisCoVisc. A capsulorrhexis was completed using the cystotome and the Utrat a forceps. Hydrodissection was performed with balanced salt solution. The lens nucleus was removed w ith the Phacoemulsification handpiece without incident. Cortex was removed with the irrigation-aspir ation handpiece. The capsular bag was re-inflated using DisCoVisc and an [id number] diopter implant w as inserted with the shooter, followed by an iStent inject inserted at the 8 and 10 o'clock positions with its shooter. The irrigation-aspiration handpiece was used to remove all residual DisCoVisc. T he eye was refilled with balanced salt solution and the wound checked and found to be watertight. To pical Maxitrol drops were given. [id number]/[facility] #: [id number]
[2018-12-30] MEDS ORDERED: Cyclopentolate 1% OPTH.SOL* 2 ML BTL ONE (12:21)
[2018-12-30] MEDS ORDERED: Phenylephrine OPHTH SOL 2.5%* 2 ML ONE (12:21)
[2018-12-30] MEDS ORDERED: Lidocaine 1% MPF ** 5 ML VIAL ONE (12:21)
[2018-12-30] MEDS ORDERED: Lidocaine 2% w/ EPI 1:200,000* 20 ML VIAL ONE (12:21)
[2018-12-30] MEDS ORDERED: Povidone Iodine 5% OPTH* 30 ML BTL ONE (12:21)
[2018-12-30] MEDS ORDERED: Ketorolac 0.5% OPHTH (NF) 0.5 % 5 ML BTL ONE (12:21)
[2018-12-30] MEDS ORDERED: acetaZOLAMIDE TAB* 250 MG ONE (12:21)
[2018-12-30] MEDS ORDERED: Proparacaine 0.5% OPHTH.SOL* 15 ML BTL ONE (12:21)
[2018-12-30] MEDS ORDERED: Neomycin/Polymy/Dex OPTH.SUSP* MAXITROL 0.1% 5 ML ONE (12:21)
== END 2018-12-30 10:30 | disposition home or self-care (01) ==
LOC: OREAST 07:33
PROVIDERS: ATTEND Specialist
DX: H25.812 Combined forms of age-related cataract, left eye (principal); H40.1121 Primary open-angle glaucoma, left eye, mild stage; H33.8 Other retinal detachments; K21.9 Gastro-esophageal reflux disease without esophagitis; M19.90 Unspecified osteoarthritis, unspecified site; G20 Parkinson's disease
CPT/HCPCS: A9270-GY; C1783; J2250; V2632

== ENCOUNTER 2019-04-01 09:46 | Emergency (ER) | payer MEDICARE ==
--- OUTSIDE RECORDS SUMMARY | 2019-04-01 09:57 | XMS REPORT | Continuity of Care Document ---
:1950 External Reference #:[id number] Author Name Yvonne Cardenas O.D. Address [address] [place] [address] Care Team Providers Name Role Phone Tirso Quintana M.D. - Laser Print Operator Care Team Information Support Coordinator Haim Singh M.D. - Anesthesiology Care Team Information Support Coordinator [phone] Zeke Yoder M.D. - Neurology Care Team Information Support Coordinator [phone] Love Medeiros - Orthopaedic Surgery Care Team Information Support Coordinator Unavailable Kristen Blackman M.D. - Psychiatry Care Team Information Support Coordinator [phone] Problems Active Problems Provider Date Gastroesophageal reflux disease Onset: Arthritis Onset: Parkinson's disease Onset: Memory lapses Onset: Sciatica Onset: Ocular hypertension Yvonne Cardenas O.D. Onset: 12/09/2016 Esophoria Yvonne Cardenas O.D. Onset: 12/09/2016 Combined form of senile cataract Yvonne Cardenas O.D. Onset: 12/09/2016 Retinal detachment Yvonne Cardenas O.D. Onset: 12/09/2016 Diplopia Yvonne Cardenas O.D. Onset: 01/15/2017 Bilateral primary open angle glaucoma Karl Mortensen M.D. Onset: 09/08/2018 Presence of intraocular lens Karl Mortensen M.D. Onset: 09/17/2018 Other secondary cataract, right eye Karl Mortensen M.D. Onset: 12/28/2018 Other secondary cataract, bilateral Oseas ChowD. Onset: 2018 Social History Type Date Description Comments Sex Unknown ETOH Use Denies alcohol use Tobacco Use Start: Unknown Patient has never smoked Recreational Drug Use Denies Drug Use Smoking Status Reviewed: 03/05/19 Patient has never smoked Allergies, Adverse Reactions, Alerts Active Allergies Reaction Severity Comments Date Primidone 01/23/2018 Inactive Allergies NKDA 12/07/2016 Medications Active Medications SIG Qnty Indications Ordering Provider Date Artificial Tears Karl Mortensen, 12/27/2018 1-0.3% M.D. Solution Selegiline HCL Mica Kearns 5mg M.D. Capsules Carbidopa-Levodopa 4 x day Unknown 25-100mg Tablets Donepezil HCL take 1 tablet by Unknown 10mg mouth once daily Tablets Bupropion HCL ER (SR) Unknown 200mg Tablets ER 12HR Melatonin ER 1 tab every day Unknown 3mg Tablets by mouth ER Zoloft 1 tablet per day Unknown 100mg Tablets x2 Midodrine HCL Tirso Quintana M.DDelmar 5mg Tablets History Medications Prednisolone Acetate 1 drop left eye 10ml Karl Mortensen, 12/28/2018 - 1% daily M.D. 01/14/2019 Suspension Ketorolac Tromethamine 1 drop left eye 10ml Karl Mortensen, 12/28/2018 - 0.5% daily M.D. 01/14/2019 Solution Immunizations Description No Information Available Vital Signs Description No Information Available Results Description No Information Available Procedures Date Code Description Status 12/30/2018 43474 Extracapsular Cataract Extraction W/Intraocular Lens Completed 12/30/2018 0191T I-Stent Aqueous Drainage Device Completed 12/28/2018 36366 Ophthalmic Biometry Completed 12/28/2018 38548 Est Patient Intermediate Exam Completed 09/16/2018 62444 Extracapsular Cataract Extraction W/Intraocular Lens Completed 09/16/2018 0191T I-Stent Aqueous Drainage Device Completed 09/08/2018 97301 Ophthalmic Biometry Completed 09/08/2018 48396 Ophthalmic Biometry Completed 09/08/2018 63182 Est Patient Intermediate Exam Completed Medical Devices Description No Information Available Encounters Description No Information Available Assessments Date Code Description Provider 03/05/2019 H40.1131 Primary open-angle glaucoma, bilateral, Yvonne Cardenas O.D. mild stage 03/05/2019 Z96.1 Presence of intraocular lens Yvonne Cardenas O.D. 03/05/2019 G20 Parkinson's disease Yvonne Cardenas O.D. 02/18/2019 Z96.1 Presence of intraocular lens Fabiola Duque 01/22/2019 Z96.1 Presence of intraocular lens Yvonne Cardenas O.D. 01/22/2019 H40.1131 Primary open-angle glaucoma, bilateral, Yvonne Cardenas O.D. mild stage 01/22/2019 G20 Parkinson's disease Yvonne Cardenas O.D. 01/15/2019 Z96.1 Presence of intraocular lens Yvonne Cardenas O.D. 01/15/2019 H40.1131 Primary open-angle glaucoma, bilateral, Yvonne Cardenas O.D. mild stage 01/15/2019 G20 Parkinson's disease Yvonne Cardenas O.D. 01/15/2019 H26.493 Other secondary cataract, bilateral Yvonne Cardenas O.D. 01/13/2019 Z96.1 Presence of intraocular lens Yvonne Cardenas O.D. 01/13/2019 H40.1131 Primary open-angle glaucoma, bilateral, Yvonne Cardenas O.D. mild stage 12/31/2018 Z96.1 Presence of intraocular lens Karl Mortensen M.D. 12/31/2018 H40.1131 Primary open-angle glaucoma, bilateral, Karl Mortensen M.D. mild stage 12/30/2018 H25.812 Combined forms of age-related cataract, Karl Mortensen M.D. left eye 12/30/2018 H40.1121 Primary open-angle glaucoma, left eye, Karl Mortensen M.D. mild stage 12/28/2018 H25.812 Combined forms of age-related cataract, Karl Mortensen M.D. left eye 12/28/2018 Z96.1 Presence of intraocular lens Karl Mortensen M.D. 12/28/2018 H40.1131 Primary open-angle glaucoma, bilateral, Karl Mortensen M.D. mild stage 12/28/2018 G20 Parkinson's disease Karl Mortensen M.D. 12/28/2018 H33.8 Other retinal detachments Karl Mortensen M.D. 12/28/2018 H26.491 Other secondary cataract, right eye Karl Mortensen M.D. 09/17/2018 H25.812 Combined forms of age-related cataract, Karl Mortensen M.D. left eye 09/17/2018 Z96.1 Presence of intraocular lens Karl Mortensen M.D. 09/17/2018 H40.1131 Primary open-angle glaucoma, bilateral, Karl Mortensen M.D. mild stage 09/17/2018 G20 Parkinson's disease Karl Mortensen M.D. 09/17/2018 H33.8 Other retinal detachments Karl Mortensen M.D. 09/17/2018 H53.2 Diplopia Karl Mortensen M.D. 09/16/2018 H25.811 Combined forms of age-related cataract, Karl Mortensen M.D. right eye 09/16/2018 H40.1111 Primary open-angle glaucoma, right eye, Karl Mortensen M.D. mild stage 09/08/2018 H25.811 Combined forms of age-related cataract, Karl Mortensen M.D. right eye 09/08/2018 H40.1131 Primary open-angle glaucoma, bilateral, Karl Mortensen M.D. mild stage 09/08/2018 H25.812 Combined forms of age-related cataract, Karl Mortensen M.D. left eye 09/08/2018 G20 Parkinson's disease Karl Mortensen M.D. 09/08/2018 H33.8 Other retinal detachments Karl Mortensen M.D. 09/08/2018 H53.2 Diplopia Karl Mortensen M.D. Plan of Treatment Future Appointment(s):05/03/2019 1:45 pm - Karl Mortensen M.D. at [facility], [facility]107/03/2018 1:00 pm - [facility] at [facility]2018 - Yvonne Cardenas O.D.H40.1131 Primary open-angle glaucoma, bilateral, mild stageFollow up:WITH RA SCHED 05/03/19Z96.1 Presence of intraocular lensG20 Parkinson's disease Functional Status Description No Information Available Mental Status Description No Information Available Referrals Description No Information Available
[2019-04-01] MEDS ORDERED: NS 0.9% 1000 ML** 1,000 ML IV ONE (10:14)
--- NOTE | 2019-04-01 10:20 | ED ---
Altered Mental Status - HPI Summary HPI Summary: The patient is a 69 y/o M presenting to [facility] accompanied by with a chief complaint of two falls over the course of three hours last night with changes in mental status. His reports that the patient had not gotten a lot of sleep last night and had been tremoring more than usual. His left him asleep on the couch, and she went to the bedroom, when suddenly the patient came into the room without his walker and was moving faster than usual. He then fell and didnt appear to hit his head. After the patient went back to bed, his found him in the bathroom a few hours later, and he fell again as he slid down the wall and hit his head. He has no memory of the first fall, but he does remember the second one. He now has a swelling on the right frontal head without any other trauma. They called Dr. Yoder, who is the patients neurologist for managing orthostatic seizures and Parkinsons disease, and they were recommended to come here. He did not have his night time medications last night. PMHx: orthostatic hypotension, nerve disease, lewy body dementia, right sided tremor. Nonsmoker, no EtOH, no substance use. Medications reviewed. Allergies noted. LEVEL 5 CAVEAT secondary to altered mental status. - History Of Current Complaint Chief Complaint: EDFall Stated Complaint: FALL Time Seen by Provider: 04/01/19 09:56 Hx Obtained From: Family/Detective Bureau Chief - Hx From Patient Unobtainable Due To: Altered Mental Status - LEVEL 5 CAVEAT Onset/Duration: Suddenly Timing: Lasting Hours Severity Initially: Moderate Severity Currently: Mild Character: Confusion Aggravating Factor(s): Unknown Alleviating Factor(s): Unknown Related History: Similar Episode/Diagnosed As: - orthostatic seizures/ hypotension - Allergies/Home Medications Allergies/Adverse Reactions: Allergies Allergy/AdvReac Type Severity Reaction Status Date / Time primidone Allergy Rash Verified 04/01/19 09:51 PMH/Surg Hx/FS Hx/Imm Hx Endocrine/Hematology History: Denies: Hx Diabetes, Hx Thyroid Disease Cardiovascular History: Reports: Other Cardiovascular Problems/Disorders - Orthostatic hypotension Denies: Hx Hypertension, Hx Pacemaker/ICD Respiratory History: Reports: Hx Pneumonia, Other Respiratory Problems/ Disorders - +PPD; SERIAL CXR- NEGATIVE; TREATED WITH MEDS IN 1973 Denies: Hx Asthma, Hx Chronic Obstructive Pulmonary Disease (COPD), Hx Seasonal Allergies, Hx Sleep Apnea GI History: Denies: Hx Ulcer, Other GI Disorders History: Denies: Hx Renal Disease, Other Problems/Disorders Musculoskeletal History: Reports: Hx Arthritis, Hx Bursitis - history of, Hx Tendonitis - LEFT SHOULDER- 3 SURGERIES Denies: Other Musculoskeletal History Sensory History: Reports: Hx Cataracts - Left eye currently, Right cataract extracted, Hx Contacts or Glasses - WILL WEAR GLASSES DAY OF PROCEDURE, Hx Glaucoma - Bilateral Denies: Hx Hearing Aid Opthamlomology History: Reports: Hx Cataracts - Left eye currently, Right cataract extracted, Hx Contacts or Glasses - WILL WEAR GLASSES DAY OF PROCEDURE , Hx Glaucoma - Bilateral Neurological History: Reports: Hx Nerve Disease - PARKINSON'S DISEASE, Other Neuro Impairments/Disorders - LEWY BODY DEMENTIA, RIGHT SIDED TREMOR Denies: Hx Dementia Psychiatric History: Reports: Hx Anxiety - on meds, Hx Depression - on meds Denies: Hx Panic Disorder - Surgical History Surgical History: Yes Surgery Procedure, Year, and Place: 1967 RT WRIST [place] [place] 2011, 2012 LEFT ACROMIUM REPAIR- 3 SURGERIES ON LEFT SHOULDER- [facility], 1996, R THORACOSTOMY FOR EMPYEMA [place], L KNEE PARTIAL MENISECTOMY [facility] [place] RT KNEE ACL RECONST [facility] BILATERAL TOTAL HIPS BRUNO [id number]. HERNIA -05/2014. Right Cataract Extraction -with lens and Istent Hx Anesthesia Reactions: No Infectious Disease History: No Infectious Disease History: Denies: Hx Hepatitis, Hx Human Immunodeficiency Virus (HIV), History Other Infectious Disease, Traveled Outside the [place] in Last 30 Days - Family History Known Family History: Negative: Cardiac Disease Family History: no cardio vascular or bleeding disorders in lineage - Social History Alcohol Use: None Hx Substance Use: No Substance Use Type: Reports: None Substance Use Comment - Amount & Last Used: Percocet Hx Tobacco Use: No Smoking Status (MU): Never Smoked Tobacco Have You Smoked in the Last Year: No Review of Systems Neurological: Other - two falls with amnesia of first one, AMS All Other Systems Reviewed And Are Negative: No - Comments Additional Review of Systems Comments: LEVEL 5 CAVEAT secondary to altered mental status. Physical Exam - Summary Physical Exam Summary: VITAL SIGNS: Reviewed. GENERAL: Patient is a well-developed and nourished male who is lying comfortable in the stretcher. Patient is not in any acute respiratory distress. HEAD AND FACE: No signs of trauma. No ecchymosis, hematomas or skull depressions. No sinus tenderness. EYES: PERRLA, EOMI x 2, No injected conjunctiva, no nystagmus. EARS: Hearing grossly intact. Ear canals and tympanic membranes are within normal limits. MOUTH: Oropharynx within normal limits. NECK: Supple, trachea is midline, no adenopathy, no JVD, no carotid bruit, no c- spine tenderness, neck with full ROM. CHEST: Symmetric, no tenderness at palpation. LUNGS: Clear to auscultation bilaterally. No wheezing or crackles. CVS: Regular rate and rhythm, S1 and S2 present, no murmurs or gallops appreciated. ABDOMEN: Soft, mild tenderness in the lower abdomen. No signs of distention. No rebound, no guarding, and no masses palpated. Bowel sounds are normal. EXTREMITIES: FROM in all major joints, no edema, no cyanosis or clubbing. NEURO: Alert but not oriented. Unable to give history secondary to altered mental status. No acute neurological deficits. Speech is normal and follows commands. SKIN: Dry and warm. GCS: 15. Triage Information Reviewed: Yes Vital Signs On Initial Exam: Initial Vitals Temp Pulse Resp BP Pulse Ox 98.5 F 68 12 147/97 100 04/01/19 09:47 04/01/19 09:47 04/01/19 09:47 04/01/19 09:47 04/01/19 09:47 Vital Signs Reviewed: Yes Completion Of Physical Exam Limited Due To: Altered Mental Status, Level 5 - Erskine Coma Scale Best Eye Response: 4 - Spontaneous Best Motor Response: 6 - Obeys Commands Best Verbal Response: 5 - Oriented Coma Scale Total: 15 Procedures - Sedation Patient Received Moderate/Deep Sedation with Procedure: No Diagnostics - Vital Signs Vital Signs Temp Pulse Resp BP Pulse Ox 04/01/19 09:47 98.5 F 68 12 147/97 100 - Laboratory Result Diagrams: 04/01/19 10:33 04/01/19 10:33 Lab Statement: Any lab studies that have been ordered have been reviewed, and results considered in the medical decision making process. - Radiology Chest X-Ray Radiology Interpretation Completed By: Radiologist Summary of Radiographic Findings: Impression: No active cardiopulmonary disease is noted. Likely healed rib fractures in the right lung base. ED physician has reviewed this report. - CT Brain CT CT Interpretation Completed By: Radiologist Summary of CT Findings: Impression: 1. No acute intracranial abnormality. 2. Mild chronic small vessel ischemic disease is likely. ED physician has reviewed this report. - EKG 1019 Cardiac Rate: NL - 67 bpm EKG Rhythm: Sinus Rhythm EKG Comparison: No Significant Change - Similar to previous on 10/23/18. Summary of EKG Findings: EKG at 1019 reveals NSR at [address] elevations. ED physician has reviewed and interpreted this EKG. Re-Evaluation - Re-Evaluation First Eval Re-Evaluation Time: 12:28 Change: Unchanged Comment: We discussed all results and plan for discharge home. Altered Mental Statu Course/Dx - Course Assessment/Plan: LEVEL 5 CAVEAT secondary to altered mental status. Patient is a 69 y/o M who has history of orthostatic seizures and syncope with chief complaint of altered mental status with two falls over the course of three hours last night with some amnesia and a bump on the right side of the head. Blood work without any significant abnormality except for slight anemia, urinalysis is negative for UTI. Troponin of 0.00. Head CT impression: No acute intra-abdominal abnormality. Mild chronic small vessel ischemic disease is likely. Chest x-ray impression: No active cardiopulmonary disease noted. Likely healed the fractures in the right lung base. In the ED course, the patient was given IV fluids he has no other complaints. I discussed my physical exam and findings with the patient and the patients and he seems that the safest way stressed-out because she is having a hard time taking care of the patient. The social and political studies professor spoke with the patient and the patients . At this point, the patient will be discharged home with follow-up with PCP. I discussed all the findings and test results with the patient. Patient was instructed to return to the emergency room immediately if any of the symptoms return worsens. Plan of care was discussed with the patient and understands and agrees. All questions were answered at patient satisfaction. There were no further complaints or concerns. Lung exam before discharge: CTA B/L. Good air exchange. No wheezing or crackles heard. CVS: S1 and S2 present. No murmurs appreciated. Patient is alert and oriented x 3. Patient is hemodynamically stable. Patient will be discharged home with follow up PCP in the next 2-3 days. - Diagnoses Provider Diagnoses: Falls - Provider Notifications Discussed Care Of Patient With: Regina Means - social and political studies professor Time Discussed With Above Provider: 12:30 Instructed by Provider To: Other - Regina will come see the patient in the ED. After assessing the patient's case, she states that the options given to the patient and his are not copmletely plausible for them at this time, but they have been offered various options if they choose to follow through. Discharge ED - Sign-Out/Discharge Documenting (check all that apply): Patient Departure - Patient will be discharged home. - Discharge Plan Condition: Stable Disposition: HOME Patient Education Materials: Fall Prevention for Older Adults (ED) Referrals: Tirso Quintana MD [Primary Care Provider] - 3 Days Additional Instructions: Follow up with your primary care provider in 2-3 days. Return to the emergency department for any new or worsening symptoms. - Billing Disposition and Condition Condition: STABLE Disposition: Home - Attestation Statements Document Initiated by Dulce Maria: Yes Documenting Scribe: Juliana Foley Provider For Whom Dulce Maria is Documenting (Include Credential): Dr. Silvino Albright MD Scribe Attestation: Juliana Madera scribed for Dr. Silvino Albright MD on 04/01/19 at 1848. Scribe Documentation Reviewed: Yes Provider Attestation: The documentation as recorded by the Juliana hansen accurately reflects the service I personally performed and the decisions made by me, Dr. Silvino Albright MD Status of Scribe Document: Ready
[2019-04-01 10:46] LABS: ABS Basophils 0.1 10^3/ul (0-0.2); ABS Eosinophils 0.1 10^3/ul (0-0.6); ABS Lymphocytes 1.6 10^3/ul (1.0-4.8); ABS Monocytes 0.5 10^3/ul (0-0.8); ABS Neutrophils 2.6 10^3/ul (1.5-7.7); Hematocrit 35 % (42-52); Hemoglobin 11.8 g/dL (14.0-18.0); Lymphocyte % 32.5 %; Mean Corpuscular HGB Conc 34 g/dL (31-36); Mean Corpuscular Hemoglobin 33 pg (27-31); Mean Corpuscular Volume 99 fL (80-94); Nucleated Red Blood Cells % 0.1; Platelet Count 249 10^3/uL (150-450); Red Blood Count 3.55 10^6 /uL (4.18-5.48); Red Cell Distribution Width 14 % (10-15); White Blood Count 4.8 10^3/uL (3.5-10.8)
[2019-04-01 11:04] LABS: ALT 10 U/L (7-52); AST 13 U/L (13-39); Albumin 4.2 g/dL (3.2-5.2); Alkaline Phosphatase 62 U/L (34-104); Anion Gap 5 mmol/L (2-11); BUN/Creatinine Ratio 19.1 (8-20); Blood Urea Nitrogen 18 mg/dL (6-24); CO2 Carbon Dioxide 30 mmol/L (22-32); Chloride 106 mmol/L (101-111); Creatine Kinase 73 U/L (10-223); EGFR Non-African American 79.3 (>60); Globulin 2.1 g/dL (2-4); Glucose 84 mg/dL (70-100); Sodium 141 mmol/L (135-145); Total Protein 6.3 g/dL (6.4-8.9)
[2019-04-01 11:12] LABS: Urine Appearance Cloudy; Urine Bacteria Absent (Absent); Urine Bilirubin Negative (Negative); Urine Blood 2+ (Negative); Urine Color Yellow; Urine Glucose Negative (Negative); Urine Ketones Negative (Negative); Urine Nitrite Negative (Negative); Urine Protein Negative (Negative); Urine Red Blood Cell 3+(>10/hpf) (Absent); Urine Specific Gravity 1.012 (1.010-1.030); Urine Urobilinogen Negative (Negative); Urine White Blood Cell Absent (Absent)
[2019-04-01 11:43] LABS: Acetaminophen < 15 mcg/mL; Alcohol < 10 mg/dL (<10); Salicylate < 2.50 mg/dL (<30)
[2019-04-01 11:58] LABS: TSH (Thyroid Stimulating Horm) 2.38 mcIU/mL (0.34-5.60)
[2019-04-01 13:27] VITALS: BP 162/83
== END 2019-04-01 13:25 | disposition home or self-care (01) ==
LOC: ED 09:46
DX: Z91.81 History of falling (principal); R41.82 Altered mental status, unspecified; I95.1 Orthostatic hypotension; G31.83 Neurocognitive disorder with Lewy bodies; F02.80 Dementia in other diseases classified elsewhere, unspecified severity, without behavioral disturbance, psychotic disturbance, mood disturbance, and anxiety; F41.9 Anxiety disorder, unspecified; F32.9 Major depressive disorder, single episode, unspecified; Z96.643 Presence of artificial hip joint, bilateral; Z79.899 Other long term (current) drug therapy; Z88.8 Allergy status to other drugs, medicaments and biological substances
CPT/HCPCS: 36415; 70450; 71045; 80053; 80320; 80329; 81003; 81015; 82550; 83605; 83735; 84443; 84484; 85025; 93005; 96360; 99283; G0480

== ENCOUNTER 2019-09-03 18:29 | Inpatient (IN) | payer MEDICARE ==
[2019-09-03] MEDS ORDERED: NS 0.9% 1000 ML** 1,000 ML IV ONE (19:20)
[2019-09-03 19:44] LABS: ABS Lymphocytes 0.8 10^3/ul (1.0-4.8); ABS Monocytes 0.4 10^3/ul (0-0.8); Eosinophil % 0.9 %; Hematocrit 36 % (42-52); Lymphocyte % 15.9 %; Mean Corpuscular HGB Conc 34 g/dL (31-36); Mean Corpuscular Hemoglobin 33 pg (27-31); Mean Corpuscular Volume 99 fL (80-94); Mean Platelet Volume 7.6 fL (7.4-10.4); Platelet Count 274 10^3/uL (150-450); Red Cell Distribution Width 15 % (10-15); White Blood Count 5.3 10^3/uL (3.5-10.8)
--- NOTE | 2019-09-03 19:44 | ED ---
Syncope/Near Syncope - HPI Summary HPI Summary: Patient is a 69 year-old male arriving via ambulance to [facility] accompanied by with a chief complaint of multiple near syncopal episodes and one fall tonight. He reports that he has a history of Parkinsons with Lewy body dementia , and he states he occasionally has orthostatic hypotension, but he is taking Midodrine to help. About two hours ago, he had stood up to look out of the window and suddenly became very dizzy and weak. His attempted to help him, but he seemingly had muscular contraction resulting in a fall backwards with impaction to the posterior head. He then had two near syncopal episodes afterwards. Patient denies any LOC, headache, nausea, vomiting, diarrhea, chest pain, shortness of breath, coughs, fevers, or urinary symptoms. He states he is feeling better now, although he did have some dizziness when he initially arrived that has since resolved. His expresses concern for the patients health as she has noticed that his Parkinsons seems to be worsening as he has had episodes of amnesia. No recent medication changes. His neurologist is Dr. Yoder, who has discussed these episodes with the patient and requests a brain CT when they occur. Past medical history significant for Lewy body dementia, right-sided tremor, orthostatic hypotension, spinal stenosis of lumbar region, pneumonia, thoracostomy for empyema, glaucoma with cataract surgery, arthritis, bursitis, tendonitis, bilateral hip replacements, hernia surgery, left shoulder surgeries x4. Family history of diabetes, cancer, cardiac disease. Nonsmoker, no alcohol use, no substance use. Medications reviewed. Allergies noted. - History Of Current Complaint Chief Complaint: EDFall Time Seen by Provider: 09/03/19 19:20 Hx Obtained From: Patient, Family/Mammalogy Teacher - Onset/Duration: Sudden Onset, Resolved Timing: Frequency Of Episodes - 3 Context: Witnessed, Other - near syncope, no LOC Activity At Onset: Other - had stood up Aggravating Factor(s): Other - standing up fast Alleviating Factor(s): Nothing Associated Signs And Symptoms: Dizzy - resolved, Other - impact to posterior head; Negative: LOC, headache, nausea, vomiting, diarrhea, chest pain, shortness of breath, coughs, fevers, urinary symptoms Related History: Similar Episode/Dx as - orthostatic hypotension Frequency: Episodes x___ - 3 - Allergies/Home Medications Allergies/Adverse Reactions: Allergies Allergy/AdvReac Type Severity Reaction Status Date / Time primidone Allergy Rash Verified 04/01/19 09:51 Home Medications: Home Medications Donepezil TAB* [Aricept 5 MG TAB*] 10 mg PO BEDTIME 05/26/12 [History Confirmed 04/01/19] Melatonin/Pyridoxine HCl (B6) [Melatonin 5 mg Tablet] 3 mg PO BEDTIME 05/21/13 [ History Confirmed 04/01/19] Naproxen Sodium [Naproxen 220 mg] 220 mg PO BEDTIME PRN 09/15/18 [History Confirmed 04/01/19] Sertraline HCl [Zoloft] 100 mg PO BEDTIME 09/15/18 [History Confirmed 04/01/19] buPROPion SR TAB* [Wellbutrin SR TAB*] 200 mg PO BEDTIME 09/15/18 [History Confirmed 04/01/19] Cyclobenzaprine TAB* [Flexeril 10 MG TAB*] 10 mg PO TID PRN 09/16/18 [History Confirmed 04/01/19] Carbidopa/Levodop 25/100 MG(*) [Sinemet 25/100 TAB(*)] 1 tab PO QID 12/28/18 [ History Confirmed 04/01/19] Midodrine HCl 5 mg PO TID 12/28/18 [History Confirmed 04/01/19] PMH/Surg Hx/FS Hx/Imm Hx Endocrine/Hematology History: Denies: Hx Diabetes, Hx Thyroid Disease Cardiovascular History: Reports: Other Cardiovascular Problems/Disorders - Orthostatic hypotension Denies: Hx Hypertension, Hx Pacemaker/ICD Respiratory History: Reports: Hx Pneumonia, Other Respiratory Problems/ Disorders - +PPD; SERIAL CXR- NEGATIVE; TREATED WITH MEDS IN 1973 Denies: Hx Asthma, Hx Chronic Obstructive Pulmonary Disease (COPD), Hx Seasonal Allergies, Hx Sleep Apnea GI History: Denies: Hx Ulcer, Other GI Disorders History: Denies: Hx Renal Disease, Other Problems/Disorders Musculoskeletal History: Reports: Hx Arthritis, Hx Bursitis - history of, Hx Tendonitis - LEFT SHOULDER- 3 SURGERIES Denies: Other Musculoskeletal History Sensory History: Reports: Hx Cataracts - Left eye currently, Right cataract extracted, Hx Contacts or Glasses - WILL WEAR GLASSES DAY OF PROCEDURE, Hx Glaucoma - Bilateral Denies: Hx Hearing Aid Opthamlomology History: Reports: Hx Cataracts - Left eye currently, Right cataract extracted, Hx Contacts or Glasses - WILL WEAR GLASSES DAY OF PROCEDURE , Hx Glaucoma - Bilateral Neurological History: Reports: Hx Nerve Disease - PARKINSON'S DISEASE, Other Neuro Impairments/Disorders - LEWY BODY DEMENTIA, RIGHT SIDED TREMOR Denies: Hx Dementia Psychiatric History: Reports: Hx Anxiety - on meds, Hx Depression - on meds Denies: Hx Panic Disorder - Surgical History Surgical History: Yes Surgery Procedure, Year, and Place: 1966 RT WRIST [facility]IF [place] 2011, 2012 LEFT ACROMIUM REPAIR- 3 SURGERIES ON LEFT SHOULDER- [facility], 1996, R THORACOSTOMY FOR EMPYEMA [place], L KNEE PARTIAL MENISECTOMY [facility] 1994 RT KNEE ACL RECONST [facility] BILATERAL TOTAL HIPS [facility] [id number]. [facility] -05/2014. Right Cataract Extraction -with lens and Istent Hx Anesthesia Reactions: No Infectious Disease History: No Infectious Disease History: Denies: Hx Hepatitis, Hx Human Immunodeficiency Virus (HIV), History Other Infectious Disease, Traveled Outside the [place] in Last 30 Days - Family History Known Family History: Positive: Cardiac Disease, Diabetes, Other - cancer - Social History Alcohol Use: None Hx Substance Use: No Substance Use Type: Reports: None Substance Use Comment - Amount & Last Used: Percocet Hx Tobacco Use: No Smoking Status (MU): Never Smoked Tobacco Have You Smoked in the Last Year: No - Additional Comments History Additional Comments: Parkinson's with Lewy body dementia, right-sided tremor, orthostatic hypotension , spinal stenosis of lumbar region, pneumonia, thoracostomy for empyema, glaucoma with cataract surgery, arthritis, bursitis, tendonitis, bilateral hip replacements, hernia surgery, left shoulder surgeries x4 Review of Systems - ROS Summary Review of Systems Summary: Home Medications Medication Instructions Recorded Confirmed Type Donepezil TAB* [Aricept 5 MG TAB*] 10 mg PO BEDTIME 05/26/12 04/01/19 History Melatonin/Pyridoxine HCl (B6) 3 mg PO BEDTIME 05/21/13 04/01/19 History [Melatonin 5 mg Tablet] Naproxen Sodium [Naproxen 220 mg] 220 mg PO BEDTIME PRN 09/15/18 04/01/19 History Sertraline HCl [Zoloft] 100 mg PO BEDTIME 09/15/18 04/01/19 History buPROPion SR TAB* [Wellbutrin SR 200 mg PO BEDTIME 09/15/18 04/01/19 History TAB*] Cyclobenzaprine TAB* [Flexeril 10 10 mg PO TID PRN 09/16/18 04/01/19 History MG TAB*] Carbidopa/Levodop 25/100 MG(*) 1 tab PO QID 12/28/18 04/01/19 History [Sinemet 25/100 TAB(*)] Midodrine HCl 5 mg PO TID 12/28/18 04/01/19 History Negative: Fever Negative: Chest Pain Negative: Shortness Of Breath, Cough Negative: Vomiting, Nausea Positive: no symptoms reported Neurological/Mental Status: Other - fall with posterior head impact, dizziness ( resolved); Negative: dizziness, lightheadedness, LOC Positive: Syncope - near x3. Negative: Headache All Other Systems Reviewed And Are Negative: Yes Physical Exam - Summary Physical Exam Summary: General: Well-developed, Cachectic-appearing elderly male. No acute distress. HEENT: Normocephalic, Atraumatic. Eyes: Conjuctiva normal, PERRL. Oropharynx: Clear, mucous membranes moist, (-) exudates. Neck: Soft, FROM, (-) lymphadenopathy, (-) thyromegaly, (-) JVD. Cardiovascular: Normal sinus rhythm, (-) murmur. Lungs: Clear to auscultation bilaterally (-) wheezes, (-) rales, (-) rhonchi. Abdomen: Soft, non-tender, non-distended, (-) organomegaly, normal bowel sounds. Back: (-) CVA tenderness Extremities: No edema. Skin: Warm, dry, (-) rash. Neuro: Alert and oriented x3, contracture of right hand, mildly tremulous at rest. No ataxia. No gait disturbance. No sensory deficit. Normal strength, normal sensation. Psychiatric: Mood normal, affect normal. GCS: 15. Triage Information Reviewed: Yes Vital Signs On Initial Exam: Initial Vitals Temp Pulse Resp BP Pulse Ox 98.1 F 68 16 154/85 100 09/03/19 18:33 09/03/19 18:33 09/03/19 18:33 09/03/19 18:33 09/03/19 18:33 Vital Signs Reviewed: Yes - Tere Coma Scale Best Eye Response: 4 - Spontaneous Best Motor Response: 6 - Obeys Commands Best Verbal Response: 5 - Oriented Coma Scale Total: 15 Procedures - Sedation Patient Received Moderate/Deep Sedation with Procedure: No Diagnostics - Vital Signs Vital Signs Temp Pulse Resp BP Pulse Ox 09/03/19 19:00 68 11 100 09/03/19 18:45 70 15 99 09/03/19 18:44 71 21 154/85 100 09/03/19 18:33 98.1 F 68 16 154/85 100 - Laboratory Result Diagrams: 09/03/19 19:34 09/03/19 19:34 Lab Statement: Any lab studies that have been ordered have been reviewed, and results considered in the medical decision making process. - Radiology CXR Radiology Interpretation Completed By: ED Physician Summary of Radiographic Findings: No infiltrate. No pleural effusion. This imaging scan was reviewed and interpreted by Dr. Cabrales, pending official read. - CT Brain CT CT Interpretation Completed By: Radiologist Summary of CT Findings: Impression: 1. No acute intracranial findings. 2. No skull fracture. This report has been reviewed by Dr. Cabrales. - EKG 2053 Cardiac Rate: NL - 72 BPM EKG Rhythm: Sinus Rhythm Summary of EKG Findings: EKG at 2053 reveals normal sinus rhythm with rate of 72 BPM, no acute changes, no ischemic changes. This EKG was reviewed and interpreted by Dr. Cabrales. Re-Evaluation - Re-Evaluation First Eval Re-Evaluation Time: 21:13 Comment: Santos, patient's primary nurse, reports patient's BP is orthostatic with change from 153 to 140 to 120 systolic with lying to sitting to standing Second Eval Re-Evaluation Time: 23:06 Comment: I discussed all results. While speaking with patient for discharge plan , patient's is concerned for the patient's health. She believes admission would be beneficial as they are dealing with personal living situation issues, so she is afraid she will not be able to manage the patient at home. Course/Dx Course Of Treatment: 69-year-old male presents from home by ambulance after near syncopal episode. Patient states he does have Parkinson's and Lewy body dementia. Has orthostatic hypotension he states due to some of his medications. It has been improved since he was hospitalized and placed on Midrin. However tonight he states it happened not just once but 3 times where he nearly passed out and fell down. He did not hit his head. states that his function has progressively declined recently. He is barely able to walk by himself with a walker. Not really able to stand himself. She states she is the only one at home to help take care of him. He has been instructed by his neurologist to be evaluated in the ER for any near syncopal episode. He has no significant findings on physical exam. Cachectic male. He does have orthostatic hypotension. He is given IV fluids. Workup demonstrates no significant laboratory abnormality. CT head normal chest x-ray normal. EKG normal. After thorough discussion with patient and his it seems that patient needs a higher level of care. He did have 3 episodes of syncope tonight which is unusual for him. Unknown cause other than the orthostatic hypotension. Patient is referred to the hospitalist for admission. Patient received fluids in the ED. - Diagnoses Provider Diagnoses: Near syncope - Physician Notifications Discussed Care of Patient With: Kanu Alvarez - hospitalist Time Discussed With Above Provider: 23:51 Instructed by Provider To: Other - I discussed the patients case with Dr. Alvarez, who accepts the patient for admission. Discharge ED - Sign-Out/Discharge Documenting (check all that apply): Patient Departure - Patient accepted for admission by Dr. Alvarez. - Discharge Plan Condition: Stable Disposition: ADMITTED TO [facility] - Billing Disposition and Condition Condition: STABLE Disposition: Admitted to [facility] - Attestation Statements Document Initiated by Dulce Maria: Yes Documenting Scribe: Juliana Foley Provider For Whom Dulce Maria is Documenting (Include Credential): Nikole Cabrales MD Scribandre Attestation: IJuliana, scribed for Nikole Cabrales MD on 09/04/19 at 0355. Scribe Documentation Reviewed: Yes Provider Attestation: The documentation as recorded by the Juliana hansen accurately reflects the service I personally performed and the decisions made by me, Nikole Cabrales MD Status of Scribandre Document: Viewed
[2019-09-03 20:02] LABS: Albumin/Globulin Ratio 1.9 (1-3); Calcium 9.5 mg/dL (8.6-10.3); EGFR African American 75.3 (>60); EGFR Non-African American 62.2 (>60); Globulin 2.1 g/dL (2-4); INR 1.16 (0.82-1.09); Potassium 4.6 mmol/L (3.5-5.0); Total Bilirubin 0.5 mg/dL (0.2-1.0); Total Protein 6.1 g/dL (6.4-8.9)
[2019-09-03 20:22] LABS: TSH (Thyroid Stimulating Horm) 1.07 mcIU/mL (0.34-5.60)
[2019-09-03 21:54] LABS: Urine Appearance Clear; Urine Bilirubin Negative (Negative); Urine Blood Negative (Negative); Urine Color Yellow; Urine Glucose Negative (Negative); Urine Ketones Negative (Negative); Urine Nitrite Negative (Negative); Urine Protein Negative (Negative); Urine Specific Gravity 1.013 (1.010-1.030); Urine Urobilinogen Negative (Negative)
[2019-09-04] MEDS ORDERED: Cyclobenzaprine TAB* 10 MG PO PRN (02:15)
[2019-09-04] MEDS ORDERED: Al Hydrox/Mg Hydrox/Simet LIQ* 30 ML UDC PO PRN (02:18)
[2019-09-04] MEDS ORDERED: Acetaminophen TAB* 325 MG PO PRN (02:18)
[2019-09-04] MEDS ORDERED: Ondansetron INJ* 2 MG/ML VIAL IV PRN (02:18)
[2019-09-04] MEDS: Carbidopa/Levodop 25/100 MG TAB(*) PO SCH ×4 (08:52→21:22)
[2019-09-04] MEDS: Docusate CAP* 100 MG PO SCH ×2 (08:52→21:23)
[2019-09-04] MEDS: Enoxaparin(*) 40 MG/0.4 ML SYR SUBCUT SCH (08:53)
[2019-09-04] MEDS ORDERED: Influenza VAC *QUAD* 2019-20* 0.5 ML SYRINGE IM ONE (09:00)
--- NOTE | 2019-09-04 13:11 | HP ---
HISTORY AND PHYSICAL: DATE OF ADMISSION: 09/04/19 HISTORY OF PRESENT ILLNESS: This is a 69-year-old male accompanied by the came to the ED with chief complaint of multiple near syncopal episodes and fall with gait instability. Reports that the patient has a history of Parkinson's with Lewy body dementia and occasional orthostatic hypotension for which the patient is taking midodrine to stabilize the blood pressure. It was noted that about 2 hours ago the patient states he stood up out of the window and suddenly become very dizzy and weak. His stated to help him that he seemingly had muscular contracture resulting in him falling backwards. After that, he had 2 near syncopal episodes afterwards, but the patient denied loss of consciousness or hitting the head. Denied nausea, vomiting, chest pain, shortness of breath, cough, fever, or urinary symptoms. No saddle anesthesia, no diplopia. His complained that due to all these frequent falls and near syncopal episodes, she is not capable to taking care of him due to the progressively deteriorating weakness and near total paralysis. The patient said he is feeling better now. Due to worsening Parkinson's disease , also has episodes of amnesia. There was no recent medication changes. He follows Dr. Yoder who has discussed these episodes with the patient and requested a brain CT when they occur. Based on this, the patient came to the ER and the CT findings revealed no intracranial pathology. Chest x-ray revealed no infiltrates or pleural effusion. EKG showed normal sinus rhythm with no acute changes. At this time, the patient and they are concerned of his continued safety in the house and they are therefore requesting for PT evaluation and probable rehab placement for gait instability and to develop core strength. PAST MEDICAL HISTORY: Orthostatic hypotension, dementia, Parkinson's disease, anxiety, depression, and insomnia. PAST SURGICAL HISTORY: Cataract surgery, bilateral hip replacements, hernia surgery, left shoulder surgery x4, spinal stenosis of lumbar region. MEDICATIONS: 1. Donepezil 10 mg at bedtime. 2. Melatonin 5 mg at bedtime. 4. Naproxen sodium 220 mg p.r.n. for pain. 6. Zoloft 100 mg p.o. at bedtime. 7. Wellbutrin 200 mg p.o. at bedtime. 8. Flexeril 10 mg t.i.d. as needed for muscle spasm. 9. Sinemet 25/100 mg tab 1 tablet p.o. 4 times a day. 10. Midodrine 5 mg p.o. t.i.d. ALLERGIES: PRIMIDONE. FAMILY HISTORY: Diabetes, cancer, cardiac disease. SOCIAL HISTORY: The patient is a non-smoker and denied alcohol use and denied illicit drug use. REVIEW OF SYSTEMS: Negative fever. Negative chest pain. Negative shortness of breath and cough. Negative vomiting. Negative nausea. Neurological: Fall , weakness. Dizziness resolved. Negative loss of consciousness, positive near syncopal episode. Negative headache. PHYSICAL EXAMINATION GENERAL: Well developed, cachectic appearing, elderly man, in no acute distress. VITAL SIGNS: Temperature 91.1, pulse 68, respiratory rate 16, BP 154/85, pulse oximetry 100. HEENT: Normocephalic, atraumatic. Eyes: Conjunctiva normal. Extraocular muscles intact. PERRL. Oropharynx is clear. Mucous membranes moist. No exudate. NECK: Supple. Full range of motion. No lymphadenopathy. No thyromegaly. No JVD. LUNGS: Clear to auscultation bilaterally. No wheezing. No rales. No rhonchi. CARDIOVASCULAR: Normal sinus rhythm. No murmurs. S1 and S2 heard. ABDOMEN: Soft, nontender, nondistended. No organomegaly. No bowel sounds. No CVA tenderness. EXTREMITIES: No edema. Acyanotic. NEUROLOGIC: Alert and oriented to place, time and space. Contracture of right hand. Mildly tremulous at rest. No ataxia. No gait disturbance. No sensory deficit. Normal strength. Normal sensation. SKIN: Warm, dry. No rashes. PSYCHIATRIC: Normal mood. Normal affect. Tere Coma Scale was 15. DIAGNOSTIC STUDIES/LAB DATA: Hematology: WBC 5.3, hemoglobin 12, hematocrit 36 , platelets 274. Chemistry: Sodium 139, potassium 4.6, chloride 105, bicarbonate 31, BUN 22, creatinine 1.16 Diagnostics: Chest x-ray: No infiltrate, no pleural effusion. CT brain: No acute intracranial findings, no skull fracture. EKG: Sinus rhythm. ASSESSMENT AND PLAN: 1. Near syncope: The patient will be admitted for the floor. Monitored for near syncopal episode, which I believe is due to poor intake resulting to orthostatics. The patient will be encouraged to increase his oral intake. We will continue midodrine as prescribed 5 mg t.i.d. 2. Gait instability: PT evaluation for placement, I recommend subacute rehab. 3. Parkinson's disease. The patient to continue with his carbidopa-levodopa. 4. Dementia. The patient to continue with donepezil. 5. Muscle spasm. Flexeril as needed. 6. Depression/anxiety. The patient to continue with sertraline 100 mg at bedtime, Wellbutrin 200 mg at bedtime. 7. Insomnia. The patient to continue with melatonin. 8. Code status: Full code at this time. 9. Diet: Regular diet. 10. DVT prophylaxis: Lovenox. 11. Fluid and electrolyte will be replaced as needed. TIME SPENT: Time spent on this admission was 60 minutes. Greater than half of that time was spent [id number] with the patient obtaining my history and physical, the other half of the time was spent going over the plan of care with the patient and implementing plan of care. I strongly recommend subacute rehab for this patient as this will be beneficial to develop core strength. Thank you very much for the opportunity to partake in the healthcare needs of this valentin family and gentleman. [id number]/CPS #: [id number] CYNTHIA
--- NOTE | 2019-09-04 18:27 | PN ---
Hospitalist Progress Note Date of Service: 09/04/19 Patient admitted overnight Seen this afternoon, denies any dizziness, CP, SOB Tolerating PO intake No acute complaints Alert, oriented to self and hospital RRR Lungs CTA Abd soft, NTND, BS+ Agree with plan of care, PT consult Will order telemetry for dizziness/near syncope On midodrine, ?need for CONCETTA
[2019-09-04] MEDS: Pyridoxine TAB* 50 MG PO SCH (21:22)
[2019-09-04] MEDS: Melatonin 3 MG TAB PO SCH (21:22)
[2019-09-04] MEDS: buPROPion SR TAB.SR* 200 MG PO SCH (21:22)
[2019-09-04] MEDS: Donepezil TAB* 5 MG PO SCH (21:23)
[2019-09-04] MEDS: Sertraline* 100 MG TAB PO SCH (21:23)
[2019-09-05] MEDS ORDERED: Melatonin 3 MG TAB PO ONE (03:10)
[2019-09-05 06:38] LABS: ABS Eosinophils 0.2 10^3/ul (0-0.6); ABS Lymphocytes 2.1 10^3/ul (1.0-4.8); ABS Monocytes 0.5 10^3/ul (0-0.8); ABS Neutrophils 3.2 10^3/ul (1.5-7.7); Eosinophil % 2.6 %; Hematocrit 33 % (42-52); Hemoglobin 11.2 g/dL (14.0-18.0); Mean Corpuscular HGB Conc 34 g/dL (31-36); Mean Corpuscular Hemoglobin 34 pg (27-31); Mean Corpuscular Volume 99 fL (80-94); Mean Platelet Volume 7.9 fL (7.4-10.4); Platelet Count 246 10^3/uL (150-450); Red Blood Count 3.34 10^6 /uL (4.18-5.48); Red Cell Distribution Width 14 % (10-15)
[2019-09-05 06:54] LABS: BUN/Creatinine Ratio 22.1 (8-20); Calcium 8.9 mg/dL (8.6-10.3); EGFR African American 85.4 (>60); EGFR Non-African American 70.6 (>60)
[2019-09-05] MEDS: Docusate CAP* 100 MG PO SCH ×2 (09:14→20:35)
[2019-09-05] MEDS: Carbidopa/Levodop 25/100 MG TAB(*) PO SCH ×4 (09:14→20:35)
[2019-09-05] MEDS: Enoxaparin(*) 40 MG/0.4 ML SYR SUBCUT SCH (09:14)
--- NOTE | 2019-09-05 11:01 | PN ---
Subjective Date of Service: 09/05/19 Interval History: Mr. Zuniga is feeling well this morning. He did try to get up to the chair this morning and had significant dizziness upon standing, so had to sit back down. He does report this is typical for him, but has been happening more often than normal. Denies CP, SOB. No concerns from nursing. Family History: Unchanged from Admission Social History: Unchanged from Admission Past Medical History: Unchanged from Admission Objective Active Medications: Acetaminophen (Tylenol Tab*) 650 mg PO Q4H PRN MILD PAIN or TEMP > 100.4 Al Hydrox/Mg Hydrox/Simethicone (Maalox Plus*) 30 ml PO Q6H PRN INDIGESTION Bupropion HCl (Wellbutrin Sr Tab*) 200 mg PO BEDTIME NAYELI Carbidopa/Levodopa (Sinemet 25/100 Tab(*)) 1 tab PO QID NAYELI Cyclobenzaprine HCl (Flexeril Tab*) 10 mg PO TID PRN PAIN Docusate Sodium (Colace Cap*) 100 mg PO BID NAYELI Donepezil HCl (Aricept Tab*) 10 mg PO BEDTIME NAYELI Enoxaparin Sodium (Lovenox(*)) 40 mg SUBCUT Q24H NAYELI Melatonin (Melatonin) 3 mg PO BEDTIME NAYELI Midodrine (Midodrine) 5 mg PO TID NAYELI; Protocol Ondansetron HCl (Zofran Inj*) 4 mg IV Q4H PRN NAUSEA/VOMITING Pyridoxine HCl (Vitamin B6 Tab*) 50 mg PO BEDTIME NAYELI Sertraline HCl (Zoloft*) 100 mg PO BEDTIME NAYELI Vital Signs - 8 hr 09/05/19 09/05/19 07:26 08:00 Temperature 98.0 F Pulse Rate 69 Respiratory 16 16 Rate Blood Pressure 132/66 (mmHg) O2 Sat by Pulse 100 Oximetry Oxygen Devices in Use Now: None Appearance: Elderly male lying in bed in NAD Ears/Nose/Mouth/Throat: Mucous Membranes Moist Neck: NL Appearance and Movements; NL JVP, Trachea Midline Respiratory: Symmetrical Chest Expansion and Respiratory Effort, Clear to Auscultation Cardiovascular: NL Sounds; No Murmurs; No JVD, RRR Abdominal: NL Sounds; No Tenderness; No Distention Extremities: No Edema Neurological: Alert and Oriented x 3 Lines/Tubes/Other Access: Clean, Dry and Intact Peripheral IV Nutrition: Taking PO's Result Diagrams: 09/05/19 06:05 09/05/19 06:05 Assess/Plan/Problems-Billing Assessment: Mr. Zuniga is a 69 yo M with PMH of Parkinson's, dementia, orthostatic hypotension, anxiety, depression; presented to the ED with c/o near syncope and was admitted for further evaluation and likely need for rehab. - Patient Problems (1) Orthostatic hypotension Code(s): I95.1 - ORTHOSTATIC HYPOTENSION Comment: - Profound hypotension upon standing this morning with c/o dizziness - Continue midodrine (increased from 5mg to 7.5mg TID) (2) Syncopal episodes Code(s): R55 - SYNCOPE AND COLLAPSE Comment: - Suspect autonomic dysfunction due to PD (3) Parkinson disease Code(s): G20 - PARKINSON'S DISEASE Comment: - Continue Sinemet (4) Lewy body dementia Comment: - Mild - Continue Aricept (5) Anxiety and depression Code(s): F41.9 - ANXIETY DISORDER, UNSPECIFIED; F32.9 - MAJOR DEPRESSIVE DISORDER, SINGLE EPISODE, UNSPECIFIED Comment: - Continue bupropion, sertraline (6) DVT prophylaxis Code(s): Z29.9 - ENCOUNTER FOR PROPHYLACTIC MEASURES, UNSPECIFIED Comment: - Lovenox (7) Full code status Code(s): Z78.9 - OTHER SPECIFIED HEALTH STATUS Comment: Status and Disposition: Inpatient. Anticipate need for CONCETTA. PMRU referral pending. Attending: Karmen Valentin
[2019-09-05] MEDS: Donepezil TAB* 5 MG PO SCH (20:35)
[2019-09-05] MEDS: buPROPion SR TAB.SR* 200 MG PO SCH (20:35)
[2019-09-05] MEDS: Pyridoxine TAB* 50 MG PO SCH (20:35)
[2019-09-05] MEDS: Sertraline* 100 MG TAB PO SCH (20:36)
[2019-09-05] MEDS: Melatonin 3 MG TAB PO SCH (20:36)
[2019-09-05] MEDS: diPHENhydraMINE PO* 25 MG PO PRN (23:04)
[2019-09-06] MEDS: Carbidopa/Levodop 25/100 MG TAB(*) PO SCH ×4 (09:14→20:40)
[2019-09-06] MEDS: Docusate CAP* 100 MG PO SCH ×2 (09:14→20:39)
[2019-09-06] MEDS: Enoxaparin(*) 40 MG/0.4 ML SYR SUBCUT SCH (09:15)
--- NOTE | 2019-09-06 13:41 | PN ---
Subjective Date of Service: 09/06/19 Interval History: Mr. Zuniga is feeling okay today. He did have some dizziness upon standing this morning, but typically feels fine once he is up and moving. He was able to work with PT today and did do some stairs. Denies CP, SOB. No concerns from nursing. Family History: Unchanged from Admission Social History: Unchanged from Admission Past Medical History: Unchanged from Admission Objective Active Medications: Acetaminophen (Tylenol Tab*) 650 mg PO Q4H PRN MILD PAIN or TEMP > 100.4 Al Hydrox/Mg Hydrox/Simethicone (Maalox Plus*) 30 ml PO Q6H PRN INDIGESTION Bupropion HCl (Wellbutrin Sr Tab*) 200 mg PO BEDTIME NAYELI Carbidopa/Levodopa (Sinemet 25/100 Tab(*)) 1 tab PO QID NAYELI Cyclobenzaprine HCl (Flexeril Tab*) 10 mg PO TID PRN PAIN Diphenhydramine HCl (Benadryl Po*) 25 mg PO BEDTIME PRN SLEEP Docusate Sodium (Colace Cap*) 100 mg PO BID NAYELI Donepezil HCl (Aricept Tab*) 10 mg PO BEDTIME NAYELI Enoxaparin Sodium (Lovenox(*)) 40 mg SUBCUT Q24H NAYELI Melatonin (Melatonin) 3 mg PO BEDTIME NAYELI Midodrine (Midodrine) 7.5 mg PO TID NAYELI; Protocol Ondansetron HCl (Zofran Inj*) 4 mg IV Q4H PRN NAUSEA/VOMITING Pyridoxine HCl (Vitamin B6 Tab*) 50 mg PO BEDTIME NAYELI Sertraline HCl (Zoloft*) 100 mg PO BEDTIME NAYELI Vital Signs - 8 hr 09/06/19 09/06/19 09/06/19 07:40 09:50 10:11 Temperature 97.6 F Pulse Rate 64 Respiratory 14 16 Rate Blood Pressure 128/57 114/58 (mmHg) O2 Sat by Pulse 99 Oximetry 09/06/19 09/06/19 09/06/19 10:12 10:13 11:15 Temperature 97.9 F Pulse Rate 64 Respiratory 16 Rate Blood Pressure 102/54 78/50 122/62 (mmHg) O2 Sat by Pulse 100 Oximetry Oxygen Devices in Use Now: None Appearance: Elderly male lying in bed in NAD Ears/Nose/Mouth/Throat: Mucous Membranes Moist Neck: NL Appearance and Movements; NL JVP, Trachea Midline Respiratory: Symmetrical Chest Expansion and Respiratory Effort, Clear to Auscultation Cardiovascular: NL Sounds; No Murmurs; No JVD, RRR Abdominal: NL Sounds; No Tenderness; No Distention Extremities: No Edema Neurological: Alert and Oriented x 3 Lines/Tubes/Other Access: Clean, Dry and Intact Peripheral IV Nutrition: Taking PO's Result Diagrams: 09/05/19 06:05 09/05/19 06:05 Assess/Plan/Problems-Billing Assessment: Mr. Zuniga is a 69 yo M with PMH of Parkinson's, dementia, orthostatic hypotension, anxiety, depression; presented to the ED with c/o near syncope and was admitted for further evaluation and likely need for rehab. - Patient Problems (1) Orthostatic hypotension Code(s): I95.1 - ORTHOSTATIC HYPOTENSION Comment: - Secondary to autonomic dysfunction r/t Parkinson's - Still having profound hypotension upon standing - No improvement seen with increase in midodrine dosing - Appreciate Neuro consult - Patient will require a wheelchair at home to assist with ADLs - Continue midodrine (2) Syncopal episodes Code(s): R55 - SYNCOPE AND COLLAPSE Comment: - Ssecondary to autonomic dysfunction r/t PD (3) Parkinson disease Code(s): G20 - PARKINSON'S DISEASE Comment: - Follows with Dr. Yoder - Continue Sinemet (4) Lewy body dementia Comment: - Mild - Continue Aricept (5) Anxiety and depression Code(s): F41.9 - ANXIETY DISORDER, UNSPECIFIED; F32.9 - MAJOR DEPRESSIVE DISORDER, SINGLE EPISODE, UNSPECIFIED Comment: - Continue bupropion, sertraline (6) DVT prophylaxis Code(s): Z29.9 - ENCOUNTER FOR PROPHYLACTIC MEASURES, UNSPECIFIED Comment: - Lovenox (7) Full code status Code(s): Z78.9 - OTHER SPECIFIED HEALTH STATUS Comment: Status and Disposition: Inpatient. Anticipate d/c home when cleared by PT/OT. Attending: Karmen Valentin
[2019-09-06] MEDS: buPROPion SR TAB.SR* 200 MG PO SCH (20:37)
[2019-09-06] MEDS: Pyridoxine TAB* 50 MG PO SCH (20:39)
[2019-09-06] MEDS: Sertraline* 100 MG TAB PO SCH (20:40)
[2019-09-06] MEDS: Melatonin 3 MG TAB PO SCH (20:40)
[2019-09-06] MEDS: Donepezil TAB* 5 MG PO SCH (20:40)
[2019-09-07] MEDS: Melatonin 3 MG TAB PO SCH ×2 (04:08→20:17)
[2019-09-07] MEDS: diPHENhydraMINE PO* 25 MG PO PRN ×2 (04:09→20:22)
[2019-09-07 04:40] LABS: ABS Basophils 0.1 10^3/ul (0-0.2); ABS Eosinophils 0.2 10^3/ul (0-0.6); ABS Monocytes 0.9 10^3/ul (0-0.8); ABS Neutrophils 6.3 10^3/ul (1.5-7.7); Eosinophil % 2.2 %; Hematocrit 31 % (42-52); Hemoglobin 10.8 g/dL (14.0-18.0); Lymphocyte % 21.5 %; Mean Corpuscular HGB Conc 34 g/dL (31-36); Mean Corpuscular Hemoglobin 34 pg (27-31); Mean Corpuscular Volume 98 fL (80-94); Platelet Count 232 10^3/uL (150-450); Red Cell Distribution Width 14 % (10-15); White Blood Count 9.4 10^3/uL (3.5-10.8)
[2019-09-07] MEDS: Carbidopa/Levodop 25/100 MG TAB(*) PO SCH ×4 (08:34→20:19)
[2019-09-07] MEDS: Enoxaparin(*) 40 MG/0.4 ML SYR SUBCUT SCH (08:34)
[2019-09-07] MEDS: Docusate CAP* 100 MG PO SCH ×2 (08:34→20:19)
--- NOTE | 2019-09-07 12:54 | CONSULT ---
Consult Consult: Neurology Inpatient Consult Note Date of service: 09/07/2019 Reason for consult: Neurology was consulted by Gillian Nguyen for falls. The history was obtained by the patient. Chief complaint: Frequent falls History of Present Illness: Mr. Luis Zuniga is a 69-year-old man with a 13- year history of Parkinson's disease, with recent progression to dementia and orthostatic hypotension. The patient has had frequent falls over the past three months. He states that the last fall was on 09/03/2019. The falls are mostly after he stands up from a seated position or if he was standing for a long period of time. He has preceding symptoms of vertigo and feels his body "stiff" 30-40 seconds before the fall. Usually, he is able to lay on the ground before he falls. He had three falls within the past week. He denied ever losing consciousness. He did endorse head injury related to the most recent fall. He denied focal weakness or paresthesia. He denied any impairment in his bowel or bladder function. He denied any neck pain, or radiating neck pain. The patient's main concern today is his memory. He feels that this has progressed more than his motor function related to Parkinson's. He is extremely concerned as he has trouble remembering what he did or said minutes after. He denied any worsening tremors. He denied any concussions related to the falls/head injury. Labs, Imaging and Other Diagnostics: CT head without contrast completed on 09/03/2019: no acute intracranial findings. TSH: normal. Past Medical History: Parkinson's disease with dementia, orthostatic hypotension , depression, anxiety, insomnia, cervical dyskinesia. Past Surgical History: Cataract, bilateral hip replacement, hernia surgery, left shoulder surgery, lumbar fusion. Family History: No family history of stroke or seizures. Social History: . He denied tobacco or alcohol use. Medications: Donepezil TAB* [Aricept 5 MG TAB*] 10 mg PO BEDTIME 05/26/12 [History Confirmed 04/01/19] Melatonin/Pyridoxine HCl (B6) [Melatonin 5 mg Tablet] 3 mg PO BEDTIME 05/21/13 [ History Confirmed 04/01/19] Naproxen Sodium [Naproxen 220 mg] 220 mg PO BEDTIME PRN 09/15/18 [History Confirmed 04/01/19] Sertraline HCl [Zoloft] 100 mg PO BEDTIME 09/15/18 [History Confirmed 04/01/19] buPROPion SR TAB* [Wellbutrin SR TAB*] 200 mg PO BEDTIME 09/15/18 [History Confirmed 04/01/19] Cyclobenzaprine TAB* [Flexeril 10 MG TAB*] 10 mg PO TID PRN 09/16/18 [History Confirmed 04/01/19] Carbidopa/Levodop 25/100 MG(*) [Sinemet 25/100 TAB(*)] 1 tab PO QID 12/28/18 [ History Confirmed 04/01/19] Midodrine HCl 5 mg PO TID 12/28/18 [History Confirmed 04/01/19] Fludrocortisone Acetate TAB* [Florinef TAB*] 0.1 mg PO DAILY #30 tab 09/07/19 [ Rx] Allergies: Primidone Review of Systems: A 14-point ROS was obtained and otherwise negative except for what was mentioned in the HPI. Physical Exam: Vitals: Vital Signs - 12 hr Temp Pulse Resp BP Pulse Ox 09/07/19 11:28 97.6 F 66 18 103/49 100 09/07/19 08:30 18 09/07/19 07:17 97.0 F 65 18 141/76 100 09/07/19 06:19 18 09/07/19 04:09 18 09/07/19 03:15 97.2 F 73 18 141/69 100 Orthostatic vitals: 114/58 laying, 102/54 sitting, 78/50 standing. General: ill appearing man who appears older than stated age, in no distress. Head: normocephalic, without obvious abnormality Eyes: conjunctivae/corneas clear Neck: supple, symmetrical. No carotid bruit. No lymphadenopathy. Lungs: clear to auscultation bilaterally, non-labored CV: regular rhythm, S1, S2 normal, radial pulses palpable Extremities: normal range of motion with no cyanosis. Skin: no skin lesions or lacerations Psych: affect-broad and normal mood. Easy to establish rapport. Neurological examination: Mental status: awake; alert and oriented to person, place, time, & general circumstances. Mild short term memory loss. He has cervical dyskinetic movements when talking. Masked facies. Cranial nerves: I: not tested II, III, IV, : normal confrontation B/L, Pupils midrange and reactive to light , normal consensual response; extraocular muscles are intact; no ptosis; no conjugate or asymmetrical nystagmus V 1/2/3: sensation is intact on forehead, cheeks, and jaw region VII: no facial droop; facial symmetry while smiling & wrinkling of forehead; tight lid closure VIII: able to hear throughout the history process IX & X: symmetric palatal elevation XI: normal strength against resistance XII: tongue is symmetrical & midline with no atrophy or fasciculations Motor (R/L): no abnormal movements, no pronator drift. Normal bulk and tone throughout. No fasciculations. Neck extension 5. Shoulder ROM is full. Shoulder abduction 5/5. Elbow flexion 5/5, extension 5/5. Wrist flexion 5/5, extension 5/5. Finger flexion 5/5, extension 5/5, abduction 5/5. Hip flexion 5/5, abduction 5/5. Knee flexion 5/5, extension 5/5. Ankle dorsiflexion 5/5, plantarflexion 5/5. Mild cogwheel rigidity of both upper and lower extremities. Reflexes R L Brachioradialis 1 1 Biceps 1 1 Triceps 1 1 Patella 1 1 Ankle 1 1 Plantar flexor flexor Positive Manju's sign bilaterally. Sensation is intact to light touch throughout. Coordination: normal finger to nose and rapid alternating movements. Gait & Station: wide based gait, walker dependent. Assessment: Mr. Luis Zuniga is a 69-year-old right-handed man who has a long-standing history of Parkinson's disease with dementia, which is progressing, who presents with frequent falls related to orthostatic hypotension. 1. Recurrent falls due to severe neurogenic orthostatic hypotension secondary to Parkinson's disease. The patient's orthostatic vitals were positive during this hospitalization and systolic blood pressure dropped by close to 30 points. 2. Parkinson's disease with dementia. His cognitive dysfunction is his biggest concern now. He reports no trouble with his motor function, but is upset that he is forgetful. 3. Cervical dyskinesia. 4. Positive Manju's sign on examination. The symmetric makes it non-specific and could be physiologic. He denied any neck pain and has no evidence of myelopathy on examination. If he continues to fall or if he has neck pain/ upper extremity weakness, evaluating for degenerative disc disease in the cervical spine is recommended. Recommendations: - Trial Florinef 0.1 mg PO daily. - Agree with increasing Midodrin 7.5 three times a day or 10 mg twice daily - Ordered B12 level to evaluate for reversible causes for his memory loss. Replete with daily supplements if B12 is less than 300. - He is not using compression stockings. I encouraged him to use those daily. - He would be a candidate for Doxidopa which would need prior authorization. This can be done as an outpatient. - Consider adding an Exelon patch to improve his memory, and we could trial him on a lower dose of Aricept to see if that improves his BP. - I urged him to minimize the use of Flexeril as this can also be contributing to his BP. - Pending a rehabilitation bed. The patient's spouse can no longer care for him at home. Follow-up with neurology in 4-6 weeks. Discussed the above recommendations with Sarah Kurtz. Jacinta Heredia MD Date: 09/07/2019 Time: 12:57
[2019-09-07] MEDS: Fludrocortisone Acetate TAB* 0.1 MG PO SCH (15:28)
--- NOTE | 2019-09-07 18:49 | PN ---
Subjective Date of Service: 09/07/19 Interval History: Patient c/o continued dizziness with positional changes. Denies chest pain, difficulty breathing, abd pain, nausea/vomiting. Family History: Unchanged from Admission Social History: Unchanged from Admission Past Medical History: Unchanged from Admission Objective Active Medications: Acetaminophen (Tylenol Tab*) 650 mg PO Q4H PRN PRN Reason: MILD PAIN or TEMP > 100.4 Al Hydrox/Mg Hydrox/Simethicone (Maalox Plus*) 30 ml PO Q6H PRN PRN Reason: INDIGESTION Bupropion HCl (Wellbutrin Sr Tab*) 200 mg PO BEDTIME [facility] Last Admin: 09/06/19 20:37 Dose: 200 mg Carbidopa/Levodopa (Sinemet 25/100 Tab(*)) 1 tab PO QID NAYELI Last Admin: 09/07/19 17:17 Dose: 1 tab Cyclobenzaprine HCl (Flexeril Tab*) 10 mg PO TID PRN PRN Reason: PAIN Diphenhydramine HCl (Benadryl Po*) 25 mg PO BEDTIME PRN PRN Reason: SLEEP Last Admin: 09/07/19 04:09 Dose: 25 mg Docusate Sodium (Colace Cap*) 100 mg PO BID NAYELI Last Admin: 09/07/19 08:34 Dose: 100 mg Donepezil HCl (Aricept Tab*) 10 mg PO BEDTIME NAYELI Last Admin: 09/06/19 20:40 Dose: 10 mg Enoxaparin Sodium (Lovenox(*)) 40 mg SUBCUT Q24H NAYELI Last Admin: 09/07/19 08:34 Dose: 40 mg Fludrocortisone Acetate (Florinef Tab*) 0.1 mg PO DAILY NAYELI Last Admin: 09/07/19 15:28 Dose: 0.1 mg Melatonin (Melatonin) 3 mg PO BEDTIME NAYELI Last Admin: 09/07/19 04:08 Dose: 3 mg Midodrine (Midodrine) 7.5 mg PO TID [facility]; Protocol Last Admin: 09/07/19 13:37 Dose: 7.5 mg Ondansetron HCl (Zofran Inj*) 4 mg IV Q4H PRN PRN Reason: NAUSEA/VOMITING Pyridoxine HCl (Vitamin B6 Tab*) 50 mg PO BEDTIME [facility] Last Admin: 03/16/20 20:39 Dose: 50 mg Sertraline HCl (Zoloft*) 100 mg PO BEDTIME NAYELI Last Admin: 09/06/19 20:40 Dose: 100 mg Vital Signs - 8 hr 09/07/19 09/07/19 11:28 16:14 Temperature 97.6 F 98.3 F Pulse Rate 66 81 Respiratory 18 18 Rate Blood Pressure 103/49 126/57 (mmHg) O2 Sat by Pulse 100 99 Oximetry Oxygen Devices in Use Now: None Appearance: Thin, eldery white male, laying in bed, appearing comfortable and in NAD Eyes: No Scleral Icterus, - - PERRL Ears/Nose/Mouth/Throat: Mucous Membranes Moist Neck: Trachea Midline Respiratory: Symmetrical Chest Expansion and Respiratory Effort, Clear to Auscultation Cardiovascular: NL Sounds; No Murmurs; No JVD, RRR Abdominal: - - abd soft, nontender, nondistended Extremities: No Edema, No Clubbing, Cyanosis Skin: No Rash or Ulcers Neurological: Alert and Oriented x 3 Result Diagrams: 09/07/19 04:30 09/05/19 06:05 Assess/Plan/Problems-Billing Assessment: Mr. Zuniga is a 69 yo M with PMH of Parkinson's, dementia, orthostatic hypotension, anxiety, depression; presented to the ED with c/o near syncope and was admitted for further evaluation and likely need for rehab. - Patient Problems (1) Orthostatic hypotension Current Visit: Yes Status: Acute Code(s): I95.1 - ORTHOSTATIC HYPOTENSION SNOMED Code(s): 47283228 Comment: - Secondary to autonomic dysfunction r/t Parkinson's - Still having dizziness upon standing - No improvement seen with increase in midodrine dosing - Appreciate Neuro consult; adding fludrocortisone today per Dr. Heredia's recommendation - Patient will require a wheelchair at home to assist with ADLs - Continue midodrine (2) Parkinson disease Current Visit: No Status: Acute Code(s): G20 - PARKINSON'S DISEASE SNOMED Code(s): 53390755 Comment: - Follows with Dr. Yoder - Continue Sinemet (3) Anxiety and depression Current Visit: Yes Status: Acute Code(s): F41.9 - ANXIETY DISORDER, UNSPECIFIED; F32.9 - MAJOR DEPRESSIVE DISORDER, SINGLE EPISODE, UNSPECIFIED SNOMED Code(s): 062150189 Comment: - Continue bupropion, sertraline (4) Lewy body dementia Current Visit: No Status: Acute Comment: - Mild - Continue Aricept - making discharge planning decisions as he has clear memory deficit (5) DVT prophylaxis Current Visit: No Status: Acute Priority: Low Code(s): Z29.9 - ENCOUNTER FOR PROPHYLACTIC MEASURES, UNSPECIFIED SNOMED Code(s): 622914708 Comment: - Lovenox (6) Full code status Current Visit: No Status: Acute Code(s): Z78.9 - OTHER SPECIFIED HEALTH STATUS SNOMED Code(s): 250499852 Comment: Status and Disposition: pending PMRU vs [facility]
[2019-09-07] MEDS: Sertraline* 100 MG TAB PO SCH (20:18)
[2019-09-07] MEDS: Pyridoxine TAB* 50 MG PO SCH (20:18)
[2019-09-07] MEDS: Donepezil TAB* 5 MG PO SCH (20:19)
[2019-09-07] MEDS: buPROPion SR TAB.SR* 200 MG PO SCH (20:19)
[2019-09-08] MEDS: Carbidopa/Levodop 25/100 MG TAB(*) PO SCH ×2 (09:02→13:43)
[2019-09-08] MEDS: Fludrocortisone Acetate TAB* 0.1 MG PO SCH (09:02)
[2019-09-08] MEDS: Docusate CAP* 100 MG PO SCH (09:02)
[2019-09-08] MEDS: Enoxaparin(*) 40 MG/0.4 ML SYR SUBCUT SCH (09:03)
[2019-09-08] MEDS ORDERED: Cyanocobalamin INJ * 1,000 MCG/ML VIAL 1 ML VIAL IM ONE (12:24)
[2019-09-08] MEDS ORDERED: Cyanocobalamin TAB* 500 MCG PO SCH (13:00)
[2019-09-08 13:06] VITALS: BP 108/51
--- NOTE | 2019-09-08 21:06 | DS ---
CC: Dr. Quintana * DISCHARGE SUMMARY: DATE OF ADMISSION: 09/04/19 DATE OF DISCHARGE: 09/08/19 PROVIDER: THI Rice. ATTENDING PHYSICIAN WHILE IN THE HOSPITAL: Dr. Karmen Valentin * (dictated by THI Rice) PRIMARY CARE PROVIDER: Dr. Quintana. OUTPATIENT NEUROLOGIST: Dr. Yoder. PRIMARY DIAGNOSIS: Neurogenic orthostatic hypotension secondary to Parkinson's disease. SECONDARY DIAGNOSES: 1. Parkinson's. 2. Dementia. 3. Anxiety. 4. Depression. 5. Insomnia. PERTINENT STUDIES WHILE IN THE HOSPITAL: 1. Brain CT on 09/03/19, impression: No acute intracranial findings. No skull fracture. 2. Chest x-ray on 09/03/19, impression: No evidence for acute cardiopulmonary abnormality. PERTINENT LAB DATA: Vitamin B12 of 178. HISTORY OF PRESENT ILLNESS/HOSPITAL COURSE: Luis Salcido is a 69-year-old white male with past medical history significant for Parkinson's disease, dementia, anxiety, depression, who presents to the hospital due to syncopal episodes and falling at home. The patient's described that the patient was standing from sitting position and becoming very dizzy and feeling weak and then leading to syncopal episodes. The patient was found to be orthostatic during the hospitalization. He did have a recorded blood pressure drop of over 20 mmHg when changing from sitting to standing position. He was already taking midodrine at home and this was increased during his hospitalization and did not have great effect. Dr. Heredia of the neurology service was consulted and did recommend starting Florinef as well as checking B12 level to evaluate for any universal causes of his ongoing memory loss, which has been deeply related to dementia. Dr. Heredia did also mention that the patient may be a good candidate for droxidopa and Dr. Yoder will be able to follow with as outpatient if Florinef is not helping to improve. At this point, the patient has received only 2 days of Florinef and had no noted improvement. During his hospitalization, Physical Therapy did evaluate him and did recommend subacute rehab, especially considering his decreased safety awareness. I did discuss this with the patient and his . Initially, the patient's was strongly encouraging subacute rehab placement and at that time, the patient did not seem oriented to situation and seemed that as if his healthcare proxy, his should be making the decision. On day of discharge, the patient's had done significant research on the [facility] and described to our rn case management that she did not feel comfortable sending him to any other facilities and wished to bring him home and the patient himself was hoping to go home. Of note, in outpatient documentation, Dr. Yoder has recommended long- term care for this patient at [facility] and this would have been an opportune time for that and we did discuss this during his hospitalization, and the patient and his have still adamantly chosen to go home. Of note, the patient was found to have a very mild vitamin B12 deficiency and he was started on second vitamin B12 orally and did receive one time of 1000 mcg cyanocobalamin injection prior to discharge. PHYSICAL EXAMINATION ON THE DAY OF DISCHARGE: General: Thin, older white male , lying upright in hospital bed, appearing comfortable, in no distress. Lungs: Clear to auscultation throughout. Cardio: Regular rate and rhythm without murmurs, rubs or gallops. Abdomen: Soft, nontender, nondistended. Neuro: The patient is alert and oriented x3. DISCHARGE PLAN: As previously mentioned, the patient and his have now declined a subacute rehab, which was recommended and he will be going home. He was sent a referral for physical therapy at home through [facility]. He should follow up with Dr. Yoder in the next 2 weeks if possible to evaluate if droxidopa could be considered if Florinef is not helping. He should follow up with his primary care provider in 1 week regarding his hospitalization. He should be using a high-salt diet while he is taking Florinef to adequately attempt to treat his orthostasis. He is advised to return to emergency department for falls and head trauma, changes in his gait, new weakness, numbness and tingling , changes of vision or other concerning symptoms. CONDITION ON DISCHARGE: Stable. DISPOSITION: Home. TIME SPENT: Approximately 40 minutes was spent on this discharge, approximately half of that time was spent at bedside evaluating the patient and discussing the plan of care. THI RICE [id number]/[facility] #: [id number] [facility]
== END 2019-09-08 17:10 | disposition home health service (06) | DRG 57 ==
LOC: ED 18:29 → MED 09-04 02:18
PROVIDERS: ADMIT Family Medicine; ATTEND Internal Medicine
DX: G90.3 Multi-system degeneration of the autonomic nervous system (principal); R64 Cachexia; H40.9 Unspecified glaucoma; M19.90 Unspecified osteoarthritis, unspecified site; G20 Parkinson's disease; F02.80 Dementia in other diseases classified elsewhere, unspecified severity, without behavioral disturbance, psychotic disturbance, mood disturbance, and anxiety; M48.061 Spinal stenosis, lumbar region without neurogenic claudication; R41.3 Other amnesia; F32.9 Major depressive disorder, single episode, unspecified; M24.541 Contracture, right hand; R26.2 Difficulty in walking, not elsewhere classified; M62.838 Other muscle spasm; F41.9 Anxiety disorder, unspecified; G47.00 Insomnia, unspecified; F51.9 Sleep disorder not due to a substance or known physiological condition, unspecified; E53.8 Deficiency of other specified B group vitamins; Z96.643 Presence of artificial hip joint, bilateral; Z79.899 Other long term (current) drug therapy; Z88.8 Allergy status to other drugs, medicaments and biological substances; Z82.49 Family history of ischemic heart disease and other diseases of the circulatory system; Z83.3 Family history of diabetes mellitus; Z80.9 Family history of malignant neoplasm, unspecified
CPT/HCPCS: 36415; 70450; 71045; 80048; 80053; 81003; 82607; 83605; 83735; 84443; 84484; 85025; 85610; 90686; 93005; 99285; A9270-GY; J1650; J3420

== ENCOUNTER 2020-04-21 08:48 | Inpatient (IN) ==
[2020-04-21] MEDS ORDERED: Senna TAB 8.6 mg TAB PO PRN (11:00)
[2020-04-21] MEDS ORDERED: Al Hydrox/Mg Hydrox/Simet LIQ 30 ML UDC PO PRN (11:00)
[2020-04-21] MEDS ORDERED: Dextran 70/Hypromellose Tears Eye Drops 15 ml BTL (for Artificials Tears) BOTH EYES PRN (11:21)
[2020-04-21] MEDS: Carbidopa/Levodop 25/100 MG TAB PO SCH ×3 (13:13→20:59)
[2020-04-21] MEDS: Enoxaparin 40 MG/0.4 ML SYR SUBCUT SCH (13:14)
[2020-04-21] MEDS: buPROPion SR 200 mg TAB.SR PO SCH (20:59)
[2020-04-22 05:27] LABS: ABS Basophils 0.1 10^3/ul (0-0.2); ABS Eosinophils 0.1 10^3/ul (0-0.6); ABS Lymphocytes 1.7 10^3/ul (1.0-4.8); ABS Monocytes 0.5 10^3/ul (0-0.8); ABS Neutrophils 3.1 10^3/ul (1.5-7.7); Hematocrit 33 % (42-52); Hemoglobin 11.1 g/dL (14.0-18.0); Lymphocyte % 31.4 %; Mean Corpuscular HGB Conc 34 g/dL (31-36); Mean Corpuscular Hemoglobin 34 pg (27-31); Mean Corpuscular Volume 100 fL (80-94); Mean Platelet Volume 8.1 fL (7.4-10.4); Platelet Count 297 10^3/uL (150-450); Red Blood Count 3.28 10^6 /uL (4.18-5.48); Red Cell Distribution Width 14 % (10-15); White Blood Count 5.5 10^3/uL (3.5-10.8)
[2020-04-22 05:35] LABS: Albumin 3.8 g/dL (3.2-5.2); Albumin/Globulin Ratio 1.9 (1-3); BUN/Creatinine Ratio 31.9 (8-20); Calcium 8.7 mg/dL (8.6-10.3); EGFR African American 77.4 (>60); Potassium 4.3 mmol/L (3.5-5.0); Total Bilirubin 0.3 mg/dL (0.2-1.0); Total Protein 5.8 g/dL (6.4-8.9)
[2020-04-22] MEDS ORDERED: Polyethylene Glycol 3350 17 GM PACKET PO PRN (10:22)
[2020-04-22] MEDS: Enoxaparin 40 MG/0.4 ML SYR SUBCUT SCH (10:25)
[2020-04-22] MEDS: Carbidopa/Levodop 25/100 MG TAB PO SCH ×4 (10:25→21:18)
[2020-04-22] MEDS: Multivitamins/Minerals TAB PO SCH (10:25)
[2020-04-22] MEDS: buPROPion SR 200 mg TAB.SR PO SCH (21:18)
[2020-04-23] MEDS: Carbidopa/Levodop 25/100 MG TAB PO SCH ×4 (09:26→20:17)
[2020-04-23] MEDS: Multivitamins/Minerals TAB PO SCH (09:27)
[2020-04-23] MEDS: Enoxaparin 40 MG/0.4 ML SYR SUBCUT SCH (14:34)
[2020-04-23] MEDS: buPROPion SR 200 mg TAB.SR PO SCH (20:17)
[2020-04-24 07:04] LABS: ABS Eosinophils 0.1 10^3/ul (0-0.6); ABS Lymphocytes 1.7 10^3/ul (1.0-4.8); ABS Monocytes 0.6 10^3/ul (0-0.8); ABS Neutrophils 2.9 10^3/ul (1.5-7.7); Eosinophil % 2.8 %; Hematocrit 34 % (42-52); Hemoglobin 11.5 g/dL (14.0-18.0); Lymphocyte % 32.7 %; Mean Corpuscular HGB Conc 34 g/dL (31-36); Mean Corpuscular Hemoglobin 34 pg (27-31); Mean Corpuscular Volume 100 fL (80-94); Mean Platelet Volume 7.6 fL (7.4-10.4); Platelet Count 319 10^3/uL (150-450); Red Blood Count 3.39 10^6 /uL (4.18-5.48); Red Cell Distribution Width 14 % (10-15); White Blood Count 5.4 10^3/uL (3.5-10.8)
[2020-04-24 07:08] LABS: BUN/Creatinine Ratio 20.2 (8-20); EGFR African American 80.7 (>60); EGFR Non-African American 66.7 (>60); Potassium 4.3 mmol/L (3.5-5.0)
[2020-04-24] MEDS: Multivitamins/Minerals TAB PO SCH (08:06)
[2020-04-24] MEDS: Carbidopa/Levodop 25/100 MG TAB PO SCH ×4 (08:07→20:59)
[2020-04-24] MEDS: Enoxaparin 40 MG/0.4 ML SYR SUBCUT SCH (12:08)
[2020-04-24] MEDS: buPROPion SR 200 mg TAB.SR PO SCH (20:59)
[2020-04-25] MEDS: Carbidopa/Levodop 25/100 MG TAB PO SCH ×4 (08:41→20:46)
[2020-04-25] MEDS: Multivitamins/Minerals TAB PO SCH (08:43)
[2020-04-25] MEDS: Enoxaparin 40 MG/0.4 ML SYR SUBCUT SCH (11:56)
[2020-04-25] MEDS: buPROPion SR 200 mg TAB.SR PO SCH (20:46)
[2020-04-26 07:06] LABS: ABS Eosinophils 0.1 10^3/ul (0-0.6); ABS Lymphocytes 1.3 10^3/ul (1.0-4.8); ABS Monocytes 0.9 10^3/ul (0-0.8); ABS Neutrophils 9.2 10^3/ul (1.5-7.7); Eosinophil % 0.6 %; Hematocrit 33 % (42-52); Hemoglobin 11.4 g/dL (14.0-18.0); Lymphocyte % 10.9 %; Mean Corpuscular HGB Conc 34 g/dL (31-36); Mean Corpuscular Hemoglobin 34 pg (27-31); Mean Corpuscular Volume 99 fL (80-94); Mean Platelet Volume 7.6 fL (7.4-10.4); Platelet Count 297 10^3/uL (150-450); Red Blood Count 3.36 10^6 /uL (4.18-5.48); Red Cell Distribution Width 14 % (10-15); White Blood Count 11.4 10^3/uL (3.5-10.8)
[2020-04-26 07:39] LABS: Albumin 3.9 g/dL (3.2-5.2); Albumin/Globulin Ratio 1.9 (1-3); BUN/Creatinine Ratio 23.2 (8-20); Calcium 8.9 mg/dL (8.6-10.3); EGFR African American 112.1 (>60); EGFR Non-African American 92.6 (>60); Globulin 2.1 g/dL (2-4); Potassium 4.1 mmol/L (3.5-5.0); Total Bilirubin 0.5 mg/dL (0.2-1.0)
[2020-04-26] MEDS: Carbidopa/Levodop 25/100 MG TAB PO SCH ×4 (07:42→21:07)
[2020-04-26] MEDS: Multivitamins/Minerals TAB PO SCH (07:43)
[2020-04-26 12:10] LABS: Urine Appearance Clear; Urine Bilirubin Negative (Negative); Urine Blood Negative (Negative); Urine Color Straw; Urine Glucose Negative (Negative); Urine Ketones Negative (Negative); Urine Nitrite Negative (Negative); Urine Protein Negative (Negative); Urine Specific Gravity 1.002 (1.010-1.030); Urine Urobilinogen Negative (Negative)
[2020-04-26] MEDS: Enoxaparin 40 MG/0.4 ML SYR SUBCUT SCH (12:37)
[2020-04-26] MEDS: buPROPion SR 200 mg TAB.SR PO SCH (21:07)
[2020-04-27 06:07] LABS: ABS Eosinophils 0.2 10^3/ul (0-0.6); ABS Lymphocytes 1.7 10^3/ul (1.0-4.8); ABS Monocytes 0.7 10^3/ul (0-0.8); ABS Neutrophils 4.9 10^3/ul (1.5-7.7); Hematocrit 33 % (42-52); Hemoglobin 11.1 g/dL (14.0-18.0); Lymphocyte % 22.8 %; Mean Corpuscular HGB Conc 34 g/dL (31-36); Mean Corpuscular Hemoglobin 34 pg (27-31); Mean Corpuscular Volume 100 fL (80-94); Mean Platelet Volume 7.6 fL (7.4-10.4); Nucleated Red Blood Cells % 0.1; Platelet Count 317 10^3/uL (150-450); Red Blood Count 3.25 10^6 /uL (4.18-5.48); Red Cell Distribution Width 14 % (10-15); White Blood Count 7.5 10^3/uL (3.5-10.8)
[2020-04-27] MEDS: Carbidopa/Levodop 25/100 MG TAB PO SCH ×4 (09:01→21:07)
[2020-04-27] MEDS: Multivitamins/Minerals TAB PO SCH (09:05)
[2020-04-27] MEDS: Enoxaparin 40 MG/0.4 ML SYR SUBCUT SCH (12:31)
[2020-04-27] MEDS: buPROPion SR 200 mg TAB.SR PO SCH (21:07)
[2020-04-28 05:31] VITALS: BP 141/74
[2020-04-28] MEDS: Multivitamins/Minerals TAB PO SCH (07:33)
[2020-04-28] MEDS: Carbidopa/Levodop 25/100 MG TAB PO SCH ×2 (07:33→12:44)
[2020-04-28] MEDS: Enoxaparin 40 MG/0.4 ML SYR SUBCUT SCH (12:46)
== END 2020-04-28 15:30 | disposition home health service (06) | DRG 57 ==
LOC: PMRU 11:37
PROVIDERS: ADMIT Physical Medicine & Rehabilitation; ATTEND Physical Medicine & Rehabilitation

== ENCOUNTER 2022-05-28 17:58 | Inpatient (IN) ==
[2022-05-28 19:36] LABS: ABS Eosinophils 0.1 10^3/ul (0-0.6); ABS Lymphocytes 1.3 10^3/ul (1.0-4.8); ABS Monocytes 0.7 10^3/ul (0-0.8); ABS Neutrophils 6.8 10^3/ul (1.5-7.7); Hematocrit 32 % (42-52); Hemoglobin 10.6 g/dL (14.0-18.0); Lymphocyte % 14.2 %; Mean Corpuscular HGB Conc 34 g/dL (31-36); Mean Corpuscular Hemoglobin 33 pg (27-31); Mean Corpuscular Volume 99 fL (80-94); Mean Platelet Volume 7.3 fL (7.4-10.4); Platelet Count 326 10^3/uL (150-450); Red Blood Count 3.22 10^6 /uL (4.18-5.48); Red Cell Distribution Width 14 % (10-15); White Blood Count 8.9 10^3/uL (3.5-10.8)
[2022-05-28] MEDS ORDERED: Lactated Ringers 1000 ml BAG 1,000 ML IV ONE (19:43)
[2022-05-28 19:45] LABS: Activated Partial Thrombo Time 27.7 seconds (26.0-38.0); INR 1.18 (0.89-1.11)
[2022-05-28 20:06] LABS: Urine Appearance Cloudy; Urine Bilirubin Negative (Negative); Urine Blood Negative (Negative); Urine Color Yellow; Urine Glucose Negative (Negative); Urine Ketones Trace (Negative); Urine Nitrite Negative (Negative); Urine Protein Negative (Negative); Urine Specific Gravity 1.011 (1.002-1.030); Urine Urobilinogen Negative (Negative)
[2022-05-28 20:18] LABS: Albumin 3.7 g/dL (3.2-5.2); Albumin/Globulin Ratio 2.1 (1-3); C Reactive Protein 5.5 mg/L (<8.01); Calcium 8.8 mg/dL (8.6-10.3); Globulin 1.8 g/dL (2-4); Potassium 3.8 mmol/L (3.5-5.0); Total Bilirubin 0.5 mg/dL (0.2-1.0); Total Protein 5.5 g/dL (6.4-8.9); eGFR CKD-EPI 94.5 (>60)
[2022-05-28] MEDS ORDERED: Iohexol 350 (CONTRAST) 500 ML MDV IV ONE (20:22)
[2022-05-28 20:59] LABS: High Sensitivity Troponin 1 Hr 4 pg/mL (<20)
[2022-05-28] MEDS ORDERED: Glycerin ADULT 2.4 gm SUPP PR ONE (21:22)
[2022-05-28] MEDS ORDERED: cefTRIAXone 2 gm/50 mL D5W 2 GM/50 ML BAG IV ONE (21:33)
[2022-05-28] MEDS ORDERED: Polyethylene Glycol 3350 17 GM PACKET PO PRN (22:39)
[2022-05-28] MEDS ORDERED: Senna TAB 8.6 mg TAB PO PRN (22:39)
[2022-05-28] MEDS ORDERED: Magnesium Hydroxide LIQ 30 ML UDC PO PRN (22:39)
[2022-05-28] MEDS ORDERED: Sodium Phosphate ADULT ENEMA 133 ML BTL PR ONE (22:40)
[2022-05-29 06:55] LABS: ABS Eosinophils 0.1 10^3/ul (0-0.6); ABS Lymphocytes 1.2 10^3/ul (1.0-4.8); ABS Monocytes 0.6 10^3/ul (0-0.8); ABS Neutrophils 5.9 10^3/ul (1.5-7.7); Eosinophil % 1.2 %; Hematocrit 32 % (42-52); Hemoglobin 10.7 g/dL (14.0-18.0); Lymphocyte % 15.2 %; Mean Corpuscular HGB Conc 34 g/dL (31-36); Mean Corpuscular Hemoglobin 34 pg (27-31); Mean Corpuscular Volume 99 fL (80-94); Mean Platelet Volume 7.7 fL (7.4-10.4); Platelet Count 338 10^3/uL (150-450); Red Blood Count 3.19 10^6 /uL (4.18-5.48); Red Cell Distribution Width 14 % (10-15); White Blood Count 7.9 10^3/uL (3.5-10.8)
[2022-05-29 07:40] LABS: Calcium 9.1 mg/dL (8.6-10.3); eGFR CKD-EPI 86.7 (>60)
[2022-05-29] MEDS: Carbidopa/Levodop 25/100 MG TAB PO SCH ×4 (09:25→21:03)
[2022-05-29] MEDS: Magnesium Hydroxide LIQ 30 ML UDC PO SCH ×2 (09:28→22:08)
[2022-05-29] MEDS: Heparin 5000 UNITS/ML 1 mL VIAL SUBCUT SCH ×2 (13:42→21:02)
[2022-05-29] MEDS ORDERED: cefTRIAXone 1 gm/50 mL D5W 1 GM/50 ML BAG IV SCH (22:00)
[2022-05-30] MEDS: Heparin 5000 UNITS/ML 1 mL VIAL SUBCUT SCH ×3 (05:42→22:04)
[2022-05-30 06:45] LABS: ABS Eosinophils 0.2 10^3/ul (0-0.6); ABS Lymphocytes 1.7 10^3/ul (1.0-4.8); ABS Monocytes 0.5 10^3/ul (0-0.8); ABS Neutrophils 3.3 10^3/ul (1.5-7.7); Eosinophil % 2.9 %; Hematocrit 33 % (42-52); Hemoglobin 10.7 g/dL (14.0-18.0); Lymphocyte % 29.4 %; Mean Corpuscular HGB Conc 33 g/dL (31-36); Mean Corpuscular Hemoglobin 33 pg (27-31); Mean Corpuscular Volume 100 fL (80-94); Mean Platelet Volume 7.8 fL (7.4-10.4); Platelet Count 332 10^3/uL (150-450); Red Blood Count 3.28 10^6 /uL (4.18-5.48); Red Cell Distribution Width 14 % (10-15); White Blood Count 5.7 10^3/uL (3.5-10.8)
[2022-05-30 06:58] LABS: Calcium 9.2 mg/dL (8.6-10.3); Potassium 4.3 mmol/L (3.5-5.0); eGFR CKD-EPI 94.2 (>60)
[2022-05-30] MEDS: Carbidopa/Levodop 25/100 MG TAB PO SCH ×4 (08:30→22:03)
[2022-05-31] MEDS: Heparin 5000 UNITS/ML 1 mL VIAL SUBCUT SCH ×3 (06:07→20:50)
[2022-05-31] MEDS: Carbidopa/Levodop 25/100 MG TAB PO SCH ×4 (09:43→20:52)
[2022-05-31 10:44] LABS: Hepatitis B Surface Antigen Nonreactive (Nonreactive)
[2022-05-31 12:10] LABS: Hepatitis B Surface Ab Indeterminate (Immune)
[2022-06-01] MEDS: Heparin 5000 UNITS/ML 1 mL VIAL SUBCUT SCH ×3 (05:36→20:19)
[2022-06-01] MEDS: Carbidopa/Levodop 25/100 MG TAB PO SCH ×4 (09:07→20:19)
[2022-06-01] MEDS: Polyethylene Glycol 3350 17 GM PACKET PO SCH (09:07)
[2022-06-02] MEDS: Heparin 5000 UNITS/ML 1 mL VIAL SUBCUT SCH ×3 (05:16→21:19)
[2022-06-02] MEDS: Polyethylene Glycol 3350 17 GM PACKET PO SCH (08:34)
[2022-06-02] MEDS: Carbidopa/Levodop 25/100 MG TAB PO SCH ×4 (08:34→21:19)
[2022-06-03] MEDS: Heparin 5000 UNITS/ML 1 mL VIAL SUBCUT SCH ×3 (05:40→22:46)
[2022-06-03] MEDS: Carbidopa/Levodop 25/100 MG TAB PO SCH ×4 (09:22→22:43)
[2022-06-03] MEDS: Polyethylene Glycol 3350 17 GM PACKET PO SCH (09:23)
[2022-06-04] MEDS: Heparin 5000 UNITS/ML 1 mL VIAL SUBCUT SCH ×3 (05:41→22:27)
[2022-06-04 06:08] LABS: ABS Eosinophils 0.1 10^3/ul (0-0.6); ABS Lymphocytes 1.5 10^3/ul (1.0-4.8); ABS Monocytes 0.4 10^3/ul (0-0.8); ABS Neutrophils 5.1 10^3/ul (1.5-7.7); Eosinophil % 1.6 %; Hematocrit 34 % (42-52); Hemoglobin 11.3 g/dL (14.0-18.0); Lymphocyte % 20.3 %; Mean Corpuscular HGB Conc 34 g/dL (31-36); Mean Corpuscular Hemoglobin 33 pg (27-31); Mean Corpuscular Volume 98 fL (80-94); Mean Platelet Volume 8.1 fL (7.4-10.4); Platelet Count 321 10^3/uL (150-450); Red Blood Count 3.42 10^6 /uL (4.18-5.48); Red Cell Distribution Width 14 % (10-15); White Blood Count 7.2 10^3/uL (3.5-10.8)
[2022-06-04 06:30] LABS: Calcium 9.7 mg/dL (8.6-10.3); Magnesium 1.9 mg/dL (1.9-2.7); Potassium 4.8 mmol/L (3.5-5.0); eGFR CKD-EPI 94.5 (>60)
[2022-06-04] MEDS: Carbidopa/Levodop 25/100 MG TAB PO SCH ×4 (09:22→22:26)
[2022-06-04] MEDS: Polyethylene Glycol 3350 17 GM PACKET PO SCH (09:23)
[2022-06-05] MEDS: Heparin 5000 UNITS/ML 1 mL VIAL SUBCUT SCH ×3 (05:13→21:23)
[2022-06-05] MEDS: Polyethylene Glycol 3350 17 GM PACKET PO SCH (08:49)
[2022-06-05] MEDS: Carbidopa/Levodop 25/100 MG TAB PO SCH ×4 (08:49→21:21)
[2022-06-05] MEDS: Lidocaine PATCH 5% PATCH TRANSDERM SCH (12:54)
[2022-06-05 18:45] LABS: Rapid COVID-19 Molecular Undetected (Undetected)
[2022-06-06] MEDS: Heparin 5000 UNITS/ML 1 mL VIAL SUBCUT SCH ×2 (06:30→13:27)
[2022-06-06] MEDS: Lidocaine PATCH 5% PATCH TRANSDERM SCH (08:43)
[2022-06-06] MEDS: Carbidopa/Levodop 25/100 MG TAB PO SCH ×4 (08:43→19:45)
[2022-06-06] MEDS: Polyethylene Glycol 3350 17 GM PACKET PO SCH (08:43)
[2022-06-06] MEDS: Enoxaparin 40 MG/0.4 ML SYR SUBCUT SCH (15:28)
[2022-06-07 06:12] LABS: ABS Eosinophils 0.2 10^3/ul (0-0.6); ABS Lymphocytes 1.9 10^3/ul (1.0-4.8); ABS Monocytes 0.4 10^3/ul (0-0.8); ABS Neutrophils 2.4 10^3/ul (1.5-7.7); Hematocrit 33 % (42-52); Hemoglobin 11.2 g/dL (14.0-18.0); Lymphocyte % 38.7 %; Mean Corpuscular HGB Conc 33 g/dL (31-36); Mean Corpuscular Hemoglobin 33 pg (27-31); Mean Corpuscular Volume 100 fL (80-94); Mean Platelet Volume 7.8 fL (7.4-10.4); Nucleated Red Blood Cells % 0.1; Platelet Count 340 10^3/uL (150-450); Red Blood Count 3.34 10^6 /uL (4.18-5.48); Red Cell Distribution Width 15 % (10-15)
[2022-06-07 06:29] LABS: Potassium 4.6 mmol/L (3.5-5.0)
[2022-06-07 06:30] LABS: Calcium 9.3 mg/dL (8.6-10.3); eGFR CKD-EPI 92.1 (>60)
[2022-06-07] MEDS: Polyethylene Glycol 3350 17 GM PACKET PO SCH (09:56)
[2022-06-07] MEDS: Carbidopa/Levodop 25/100 MG TAB PO SCH ×4 (09:57→22:19)
[2022-06-07] MEDS: Lidocaine PATCH 5% PATCH TRANSDERM SCH ×2 (09:58→10:16)
[2022-06-07] MEDS: Enoxaparin 40 MG/0.4 ML SYR SUBCUT SCH ×2 (15:15)
[2022-06-08] MEDS: Lidocaine PATCH 5% PATCH TRANSDERM SCH (09:16)
[2022-06-08] MEDS: Polyethylene Glycol 3350 17 GM PACKET PO SCH (09:16)
[2022-06-08] MEDS: Carbidopa/Levodop 25/100 MG TAB PO SCH ×3 (09:22→23:06)
[2022-06-08] MEDS: Enoxaparin 40 MG/0.4 ML SYR SUBCUT SCH (15:13)
[2022-06-09] MEDS: Polyethylene Glycol 3350 17 GM PACKET PO SCH (08:23)
[2022-06-09] MEDS: Carbidopa/Levodop 25/100 MG TAB PO SCH (08:23)
[2022-06-09] MEDS: Lidocaine PATCH 5% PATCH TRANSDERM SCH (08:23)
[2022-06-09 10:45] VITALS: BP 137/70
== END 2022-06-09 12:07 | disposition short-term general hospital (02) | DRG 559 ==
LOC: EDHOLD 17:58 → ED 17:58 → OBSVTOIN 22:37 → SUATTDRO 22:37 → MEDTELE 05-29 01:32
PROVIDERS: ADMIT Internal Medicine; ATTEND Hospitalist

== ENCOUNTER 2022-06-09 13:00 | Inpatient (IN) ==
[2022-06-09] MEDS ORDERED: Magnesium Hydroxide LIQ 30 ML UDC PO PRN (14:54)
[2022-06-09] MEDS: Enoxaparin 40 MG/0.4 ML SYR SUBCUT SCH (15:24)
[2022-06-09] MEDS: Carbidopa/Levodop 25/100 MG TAB PO SCH (21:00)
[2022-06-10] MEDS: Carbidopa/Levodop 25/100 MG TAB PO SCH ×3 (10:03→21:32)
[2022-06-10] MEDS: Polyethylene Glycol 3350 17 GM PACKET PO SCH (10:03)
[2022-06-10] MEDS: Lidocaine PATCH 5% PATCH TRANSDERM SCH (10:04)
[2022-06-10] MEDS: Enoxaparin 40 MG/0.4 ML SYR SUBCUT SCH (15:40)
[2022-06-11] MEDS: Polyethylene Glycol 3350 17 GM PACKET PO SCH (08:48)
[2022-06-11] MEDS: Carbidopa/Levodop 25/100 MG TAB PO SCH ×3 (08:49→20:59)
[2022-06-11] MEDS: Lidocaine PATCH 5% PATCH TRANSDERM SCH (08:50)
[2022-06-11 12:29] LABS: Rapid COVID-19 Molecular Undetected (Undetected)
[2022-06-11] MEDS: Enoxaparin 40 MG/0.4 ML SYR SUBCUT SCH (14:37)
[2022-06-12] MEDS: Carbidopa/Levodop 25/100 MG TAB PO SCH ×3 (08:04→21:04)
[2022-06-12] MEDS: Polyethylene Glycol 3350 17 GM PACKET PO SCH (08:05)
[2022-06-12] MEDS: Lidocaine PATCH 5% PATCH TRANSDERM SCH (09:00)
[2022-06-12] MEDS: Enoxaparin 40 MG/0.4 ML SYR SUBCUT SCH (15:09)
[2022-06-13] MEDS: Polyethylene Glycol 3350 17 GM PACKET PO SCH (08:23)
[2022-06-13] MEDS: Carbidopa/Levodop 25/100 MG TAB PO SCH ×3 (08:23→22:45)
[2022-06-13] MEDS: Lidocaine PATCH 5% PATCH TRANSDERM SCH (08:25)
[2022-06-13] MEDS: Enoxaparin 40 MG/0.4 ML SYR SUBCUT SCH (16:17)
[2022-06-14] MEDS: Carbidopa/Levodop 25/100 MG TAB PO SCH ×3 (10:35→19:36)
[2022-06-14] MEDS: Lidocaine PATCH 5% PATCH TRANSDERM SCH (10:35)
[2022-06-14] MEDS: Polyethylene Glycol 3350 17 GM PACKET PO SCH (10:35)
[2022-06-14] MEDS: Enoxaparin 40 MG/0.4 ML SYR SUBCUT SCH (14:46)
[2022-06-15] MEDS: Lidocaine PATCH 5% PATCH TRANSDERM SCH (08:49)
[2022-06-15] MEDS: Polyethylene Glycol 3350 17 GM PACKET PO SCH (08:49)
[2022-06-15] MEDS: Carbidopa/Levodop 25/100 MG TAB PO SCH ×3 (08:49→22:02)
[2022-06-15] MEDS: Enoxaparin 40 MG/0.4 ML SYR SUBCUT SCH (13:49)
[2022-06-16] MEDS: Carbidopa/Levodop 25/100 MG TAB PO SCH ×3 (08:35→20:05)
[2022-06-16] MEDS: Polyethylene Glycol 3350 17 GM PACKET PO SCH (08:36)
[2022-06-16] MEDS: Lidocaine PATCH 5% PATCH TRANSDERM SCH (08:37)
[2022-06-16] MEDS: Enoxaparin 40 MG/0.4 ML SYR SUBCUT SCH (14:07)
[2022-06-17] MEDS: Polyethylene Glycol 3350 17 GM PACKET PO SCH (08:30)
[2022-06-17] MEDS: Carbidopa/Levodop 25/100 MG TAB PO SCH ×3 (09:39→23:14)
[2022-06-17] MEDS: Lidocaine PATCH 5% PATCH TRANSDERM SCH (09:40)
[2022-06-17] MEDS: Enoxaparin 40 MG/0.4 ML SYR SUBCUT SCH (15:44)
[2022-06-18] MEDS: Polyethylene Glycol 3350 17 GM PACKET PO SCH (08:12)
[2022-06-18] MEDS: Lidocaine PATCH 5% PATCH TRANSDERM SCH (08:13)
[2022-06-18] MEDS: Carbidopa/Levodop 25/100 MG TAB PO SCH ×3 (08:13→20:06)
[2022-06-18] MEDS ORDERED: Dextran 70/Hypromellose Tears Eye Drops 15 ml BTL (for Artificials Tears) LEFT EYE PRN (11:48)
[2022-06-18] MEDS: Enoxaparin 40 MG/0.4 ML SYR SUBCUT SCH (13:49)
[2022-06-19] MEDS: Carbidopa/Levodop 25/100 MG TAB PO SCH ×3 (09:26→20:58)
[2022-06-19] MEDS: Polyethylene Glycol 3350 17 GM PACKET PO SCH ×2 (09:26→09:30)
[2022-06-19] MEDS: Lidocaine PATCH 5% PATCH TRANSDERM SCH (09:29)
[2022-06-19] MEDS: Enoxaparin 40 MG/0.4 ML SYR SUBCUT SCH (15:13)
[2022-06-20] MEDS: Lidocaine PATCH 5% PATCH TRANSDERM SCH (09:03)
[2022-06-20] MEDS: Carbidopa/Levodop 25/100 MG TAB PO SCH ×3 (09:03→22:16)
[2022-06-20] MEDS: Polyethylene Glycol 3350 17 GM PACKET PO SCH (09:04)
[2022-06-20] MEDS: Enoxaparin 40 MG/0.4 ML SYR SUBCUT SCH (14:17)
[2022-06-21] MEDS: Polyethylene Glycol 3350 17 GM PACKET PO SCH (11:00)
[2022-06-21] MEDS: Lidocaine PATCH 5% PATCH TRANSDERM SCH (11:01)
[2022-06-21] MEDS: Carbidopa/Levodop 25/100 MG TAB PO SCH ×3 (11:01→22:09)
[2022-06-21] MEDS: Enoxaparin 40 MG/0.4 ML SYR SUBCUT SCH (14:22)
[2022-06-22] MEDS: Carbidopa/Levodop 25/100 MG TAB PO SCH ×3 (09:49→22:04)
[2022-06-22] MEDS: Lidocaine PATCH 5% PATCH TRANSDERM SCH (09:49)
[2022-06-22] MEDS: Polyethylene Glycol 3350 17 GM PACKET PO SCH (09:49)
[2022-06-22] MEDS: Enoxaparin 40 MG/0.4 ML SYR SUBCUT SCH (14:47)
[2022-06-23] MEDS: Carbidopa/Levodop 25/100 MG TAB PO SCH ×3 (07:53→21:21)
[2022-06-23] MEDS: Polyethylene Glycol 3350 17 GM PACKET PO SCH (07:54)
[2022-06-23] MEDS: Lidocaine PATCH 5% PATCH TRANSDERM SCH (07:54)
[2022-06-23] MEDS: Enoxaparin 40 MG/0.4 ML SYR SUBCUT SCH (13:17)
[2022-06-24] MEDS: Carbidopa/Levodop 25/100 MG TAB PO SCH ×4 (08:39→20:22)
[2022-06-24] MEDS: Polyethylene Glycol 3350 17 GM PACKET PO SCH (08:40)
[2022-06-24] MEDS: Lidocaine PATCH 5% PATCH TRANSDERM SCH (08:40)
[2022-06-24] MEDS: Enoxaparin 40 MG/0.4 ML SYR SUBCUT SCH (15:08)
[2022-06-25] MEDS: Lidocaine PATCH 5% PATCH TRANSDERM SCH (11:05)
[2022-06-25] MEDS: Carbidopa/Levodop 25/100 MG TAB PO SCH ×3 (11:05→21:31)
[2022-06-25] MEDS: Polyethylene Glycol 3350 17 GM PACKET PO SCH (11:06)
[2022-06-25] MEDS: Enoxaparin 40 MG/0.4 ML SYR SUBCUT SCH (15:07)
[2022-06-26] MEDS: Lidocaine PATCH 5% PATCH TRANSDERM SCH (10:04)
[2022-06-26] MEDS: Polyethylene Glycol 3350 17 GM PACKET PO SCH (10:04)
[2022-06-26] MEDS: Carbidopa/Levodop 25/100 MG TAB PO SCH ×3 (10:04→21:27)
[2022-06-26] MEDS: Enoxaparin 40 MG/0.4 ML SYR SUBCUT SCH (14:15)
[2022-06-27 07:30] VITALS: BP 138/84
[2022-06-27] MEDS: Carbidopa/Levodop 25/100 MG TAB PO SCH ×2 (10:12→15:12)
[2022-06-27] MEDS: Lidocaine PATCH 5% PATCH TRANSDERM SCH (10:13)
[2022-06-27] MEDS: Polyethylene Glycol 3350 17 GM PACKET PO SCH (10:14)
[2022-06-27] MEDS: Enoxaparin 40 MG/0.4 ML SYR SUBCUT SCH (15:12)
== END 2022-06-27 17:12 | disposition left against medical advice (07) | DRG 561 ==
LOC: MEDTELE 13:03 → SUATTDRO 13:03 → MED 14:39
PROVIDERS: ADMIT Physician Assistant; ATTEND Internal Medicine